=== PATIENT | male | born 1945 | race Caucasian/White ===

== ENCOUNTER → 2020-07-17 | Outpatient (CLI) | payer MEDICARE, OTHER | LOC: LABNPT 08:28 | PROVIDERS: ATTEND Internal Medicine Gastroenterology | DX: Z20.828 Contact with and (suspected) exposure to other viral communicable diseases (principal) | CPT/HCPCS: 87635 ==

== ENCOUNTER → 2020-10-17 | Outpatient (CLI) | payer MEDICARE, OTHER ==
[~2020-10-17] MED LIST: AMLO-250 PO; ASPI-1238 PO; CLOP75TA28 PO; PANT40TA52 PO; PRAS10TA10 PO
== END ==
LOC: GIR 20:34
PROVIDERS: ATTEND Internal Medicine
DX: Z20.828 Contact with and (suspected) exposure to other viral communicable diseases (principal)
CPT/HCPCS: 87635

== ENCOUNTER 2020-10-18 12:45 | Inpatient (IN) | payer MEDICARE, OTHER ==
[~2020-10-18] VITALS: Ht 182.8 cm; Wt 92.1 kg
[2020-10-18] MEDS ORDERED: NS IV 500 ML 500 ML IV SCH (18:45)
[2020-10-18 19:27] VITALS: BP 134/80
[2020-10-18] MEDS: PROPOFOL DRIP (ICU) 100 ML IV SCH ×2 (20:04→22:59)
[2020-10-18] MEDS ORDERED: NS IV 1000 ML 1,000 ML ONE (20:06)
[2020-10-18] MEDS: NS IV 1000 ML 1,000 ML IV SCH ×2 (20:09→20:30)
[2020-10-18] MEDS ORDERED: NOREPINEPHRINE 4 MG/250 ML 0 ML IV ONE (20:25)
[2020-10-18] MEDS ORDERED: NS IV 1000 ML 1,000 ML IV SCH (20:45)
[2020-10-18 20:56] LABS: BASOPHILS % (AUTO) 0 % (0-10); EOSINOPHILS # (AUTO) 0.4 10^3/uL (0.0-0.3); EOSINOPHILS % (AUTO) 3 % (0-10); HEMATOCRIT 21 % (40-54); LYMPHOCYTES # (AUTO) 0.7 10^3/uL (1.0-4.0); LYMPHOCYTES % (AUTO) 6 % (12-44); MEAN CORPUSCULAR HEMOGLOBIN 30 pg (25-34); MEAN CORPUSCULAR HGB CONC 32 g/dL (32-36); MEAN CORPUSCULAR VOLUME 93 fL (80-99); MEAN PLATELET VOLUME 9.7 fL (9.0-12.2); MONOCYTES # (AUTO) 0.6 10^3/uL (0.0-1.0); MONOCYTES % (AUTO) 5 % (0-12); NEUTROPHILS # (AUTO) 9.6 10^3/uL (1.8-7.8); NEUTROPHILS % (AUTO) 83 % (42-75); PLATELET COUNT 114 10^3/uL (130-400); WHITE BLOOD COUNT 11.6 10^3/uL (4.3-11.0)
--- NOTE | 2020-10-18 20:57 | Diagnostic Imaging Report ---
INDICATION: Dyspnea. COMPARISON: None. FINDINGS: Single frontal radiographic view of the chest was obtained and demonstrates indwelling endotracheal tube with tip just below the level of the clavicular heads. Gastric tube is also seen with tip and side-port likely within the lumen of the stomach. Cardiac silhouette and pulmonary vasculature are within normal limits. There is asymmetric prominence of the interstitium of the left lung. More confluent opacities are also present within the left lung base. There is also [id number] left basilar effusion. Right lung is relatively clear. There is no large effusion or pneumothorax on the right. Osseous structures show no acute abnormality. IMPRESSION: 1. Asymmetric interstitial prominence of the left lung. Findings could be on the basis of asymmetric interstitial edema or interstitial pneumonia. 2. Mild to moderate left basilar effusion with left basilar atelectasis and/or infiltrate. 3. Lines and tubes as above. Dictated by: Dictated on workstation # [id number]
[2020-10-18 21:02] LABS: HEMOGLOBIN 6.7 g/dL (13.3-17.7)
[2020-10-18 21:11] LABS: ABG BASE EXCESS -2.8 MMOL/L (-2.5-2.5); ABG OXYGEN SATURATION 97 % (94-100); ABG PCO2 41 MMHG (35-45); ABG PH 7.35 (7.37-7.43); ABG PO2 83 MMHG (79-93); ABG TCO2 23.4 MMOL/L (21.0-31.0)
[2020-10-18 21:11] LABS: ALBUMIN 2.2 GM/DL (3.2-4.5); CHLORIDE 117 MMOL/L (98-107); SODIUM 141 MMOL/L (135-145)
[2020-10-18 21:12] LABS: CALCIUM 6.3 MG/DL (8.5-10.1)
[2020-10-18 21:13] LABS: GLUCOSE 106 MG/DL (70-105); TOTAL PROTEIN 3.5 GM/DL (6.4-8.2)
[2020-10-18 21:13] LABS: ALLENS TEST ARTLINE; INSPIRED O2 40
[2020-10-18 21:14] LABS: PATIENT TEMP 36.4; VENTILATOR NO
[2020-10-18 21:14] LABS: CARBON DIOXIDE 18 MMOL/L (21-32)
[2020-10-18 21:15] LABS: BILIRUBIN,TOTAL 0.6 MG/DL (0.1-1.0)
[2020-10-18 21:17] LABS: ALKALINE PHOSPHATASE 28 U/L (40-136); CREATININE SERUM 0.79 MG/DL (0.60-1.30); GFR ESTIMATED > 60
[2020-10-18 21:18] LABS: BUN/CREATININE RATIO 24
[2020-10-18 21:20] LABS: ALANINE AMINOTRANSFERASE 8 U/L (0-55)
[2020-10-18 21:21] VITALS: BP 155/95
[2020-10-18] MEDS ORDERED: HEParin (CENTRAL IV FLUSH) 500 UNIT/5 ML SYR ONE (21:44)
[2020-10-18 21:51] LABS: ANISOCYTOSIS SLIGHT; BAND NEUTROPHILS 6 %; BASOPHILS % (MANUAL) 1 %; EOSINOPHILS % (MANUAL) 7 %; LYMPHOCYTES % (MANUAL) 7 %; MONOCYTES % (MANUAL) 1 %; NEUTROPHILS % (MANUAL) 78 %; POIKILOCYTOSIS SLIGHT; POLYCHROMASIA SLIGHT
[2020-10-18] MEDS ORDERED: WATER (STERILE) FOR INJECTION 20 ML ONE (21:51)
[2020-10-18 21:52] LABS: ELLIPT/OVALOCYTES SLIGHT; TOXIC GRANULATION/VACUOLAZATIO 1+
[2020-10-18 22:14] VITALS: BP 137/83
[2020-10-18 22:17] LABS: BILIRUBIN,URINE NEGATIVE (NEGATIVE); CLARITY,URINE CLEAR; COLOR,URINE YELLOW; GLUCOSE, URINE (UA) NEGATIVE (NEGATIVE); KETONES,URINE TRACE (NEGATIVE); LEUKOCYTE ESTERASE ,URINE TRACE (NEGATIVE); NITRITE,URINE NEGATIVE (NEGATIVE); PH,URINE 5.5 (5-9); PROTEIN,URINE NEGATIVE (NEGATIVE)
[2020-10-18 22:25] LABS: BACTERIA,URINE TRACE /HPF; RBC,URINE RARE /HPF; WBC,URINE 0-2 /HPF
[2020-10-18 22:26] LABS: HYALINE CASTS, URINE RARE /LPF
[2020-10-18 22:29] VITALS: BP 137/87
[2020-10-18] MEDS: NOREPINEPHRINE 4 MG/250 ML 250 ML IV SCH (22:59)
[2020-10-19] VITALS (9 sets, daily range): BP systolic 115–148; BP diastolic 47–83
[2020-10-19] MEDS ORDERED: NS (IVPB) 250 ML ONE (00:07)
[2020-10-19] MEDS ORDERED: VANCOMYCIN 1000 MG/VIAL ONE (00:07)
[2020-10-19] MEDS: MEROPENEM 1,000 MG in WATER (STERILE) FOR INJECTION 20 ML IV SCH ×5 (00:20→22:21)
[2020-10-19] MEDS: VANCOMYCIN INJECTION 1,000 MG in NS (IVPB) 250 ML IV SCH ×3 (00:20→23:37)
[2020-10-19] MEDS: PANTOPRAZOLE 40 MG (PROTONIX) VIAL IV SCH ×3 (00:21→20:20)
[2020-10-19] MEDS: NS IV 1000 ML 1,000 ML IV SCH ×3 (00:30→08:55)
[2020-10-19] MEDS: PROPOFOL DRIP (ICU) 100 ML IV SCH ×3 (01:15→10:40)
[2020-10-19 05:27] LABS: BASOPHILS # (AUTO) 0.1 10^3/uL (0.0-0.1); BASOPHILS % (AUTO) 0 % (0-10); EOSINOPHILS # (AUTO) 0.8 10^3/uL (0.0-0.3); EOSINOPHILS % (AUTO) 5 % (0-10); HEMATOCRIT 29 % (40-54); LYMPHOCYTES # (AUTO) 1.1 10^3/uL (1.0-4.0); LYMPHOCYTES % (AUTO) 8 % (12-44); MEAN CORPUSCULAR HEMOGLOBIN 30 pg (25-34); MEAN CORPUSCULAR HGB CONC 33 g/dL (32-36); MEAN CORPUSCULAR VOLUME 92 fL (80-99); MEAN PLATELET VOLUME 9.8 fL (9.0-12.2); MONOCYTES # (AUTO) 0.7 10^3/uL (0.0-1.0); MONOCYTES % (AUTO) 5 % (0-12); NEUTROPHILS # (AUTO) 11.7 10^3/uL (1.8-7.8); NEUTROPHILS % (AUTO) 81 % (42-75); PLATELET COUNT 121 10^3/uL (130-400); WHITE BLOOD COUNT 14.4 10^3/uL (4.3-11.0)
[2020-10-19 05:37] LABS: CHLORIDE 115 MMOL/L (98-107); POTASSIUM 3.5 MMOL/L (3.6-5.0); SODIUM 141 MMOL/L (135-145)
[2020-10-19 05:38] LABS: CALCIUM 6.8 MG/DL (8.5-10.1)
[2020-10-19 05:39] LABS: GLUCOSE 104 MG/DL (70-105); TRIGLYCERIDES 91 MG/DL (<150)
[2020-10-19 05:41] LABS: CARBON DIOXIDE 18 MMOL/L (21-32)
[2020-10-19] MEDS ORDERED: WATER (STERILE) FOR INJECTION 20 ML ONE ×2 (05:42→20:16)
[2020-10-19] MEDS ORDERED: MEROPENEM 500 MG VIAL (MERREM) IV ONE ×2 (05:42→20:16)
[2020-10-19 05:43] LABS: CREATININE SERUM 0.82 MG/DL (0.60-1.30); GFR ESTIMATED > 60; HEMOGLOBIN 9.5 g/dL (13.3-17.7)
[2020-10-19 05:44] LABS: BUN/CREATININE RATIO 22
[2020-10-19 05:45] LABS: MAGNESIUM 1.9 MG/DL (1.6-2.4)
[2020-10-19] MEDS: NOREPINEPHRINE 4 MG/250 ML 250 ML IV SCH ×3 (05:46→16:29)
[2020-10-19] MEDS: KCL 20 MEQ TAB (K-DUR) PO SCH (05:51)
[2020-10-19] MEDS: MAGNESIUM 1 GM/100 ML IVPB 100 ML IV SCH (05:51)
[2020-10-19] MEDS: POTASSIUM CL 10MEQ/50ML IVPB 50 ML IV SCH ×3 (05:51→06:58)
--- NOTE | 2020-10-19 06:00 | History & Physical-Hospitalist ---
History of Present Illness HPI/Chief Complaint CC: VDRF from left sided PNA s/p severe sepsis and massive GI bleed with no source found on EGD x 2 and Colonoscopy HPI: This is a 74yoWM patient of Dr Servin and Dr Kong who presented to the [facility] ER with melena and hematochezia with no abdominal pain. Patient was found to be hypotensive and tachycardic and very pale even though hgb was 9.9 so patient was give 2 units of blood and Dr Alicia was consulted. Upon further evaluation he was found to have had 2 stents placed [address] Kong and was on Effient and ASA since that time of which he stopped taking 10/12/20 was his last dose due to bleeding per rectum ( I spoke to Dr Kong in-depth on 10/16 and he was very concerned about his new stents and highly recommended Plavix to be restarted but he was bleeding so profoundly the executive decision was made to not start that med due to risks for bleeding outweighed benefits). EGD was performed and pyloric stenosis dx but no source of bleeding. Dr Dugan was then consulted since Dr Alicia was OOT and he performed Colonoscopy revealing extensive clots and blood in colon without exact source identified and he repeated the EGD also and no source identified. Patient continued to have more and more melena and hematochezia and ultimately was transfused for total of 6 units prior to colonoscopy but on Tuesday evening at 1900 he decompensated with hypotension and hypoxia with left sided chest pain so he was moved to ICU and family called and central line was placed and intubated by nurse research electrician in a controlled manner. Patient continued to bleed requiring 7th unit of blood and ICU room was secured at [facility] in the midst of hospital diversion for all hospitals in [facility] radius due to VDRF and continued bleeding and the need for RBC tagged bleeding scan to identify bleeding source which is likely small bowel. PNA was treated with addition of Corey and Vanc empirically after BCx obtained during rapid response status and confirmed severe sepsis with elevated lactic acid s/p 30cc/hr NS IVF per severe sepsis protocol and did not require pressor therapy. Updated daughter. After rounding patient was successfully extubated and able to communicate. Lasix 20mg IV given due to aggressive IVF and total 9 units of blood the past 5 days. Source: RN/, old records Exam Limitations: clinical condition Date Seen 10/19/20 Time Seen by a Provider: 11:00 Attending Physician Brook Knox DO PCP No,Local Physician Referring Physician Date of Admission Oct 18, 2020 at 19:21 Home Medications & Allergies Home Medications Reviewed patient Home Medication Reconciliation performed by pharmacy medication reconciliations patient care technician and/or nursing. Patients Allergies have been reviewed. Allergies Allergies Coded Allergies atorvastatin (Verified Allergy, Unknown, 10/18/20) Past Ldfbsak-Ohpbql-Nocpat Hx Past Med/Social Hx: Reviewed Nursing Past Med/Soc Hx, Reviewed and Corrections made Patient Social History Marrital Status: Employed/Student: retired Alcohol Use: Denies Use Recreational Drug Use: No Smoking Status: Never a Smoker Physical Abuse Screen: No Sexual Abuse: No Recent Foreign Travel: No Recent Hopitalizations: Yes Seasonal Allergies Seasonal Allergies: No Past Medical History Surgeries: Coronary Stent Cardiac: Coronary Artery Disease, High Cholesterol, Hypertension History of Blood Disorders: No Review of Systems Constitutional: see HPI Physical Exam Physical Exam Vital Signs Vital Signs - First Documented 10/18/20 10/18/20 19:27 20:04 Temp 36.3 Pulse 88 Resp 18 B/P (MAP) 119/56 Pulse Ox 98 O2 Flow Rate 40.00 FiO2 40 Capillary Refill : Height, Weight, BMI Height: '" Weight: lbs. oz. kg; 26.93 BMI Method: General Appearance: No Apparent Distress, Chronically ill, Thin Respiratory: Lungs Clear, No Accessory Muscle Use, No Respiratory Distress, Other (on vent) Cardiovascular: Regular Rate, Rhythm Neurologic/Psychiatric: Other (sedated) Results Results/Procedures Labs Laboratory Tests 10/18/20 20:38 10/19/20 05:16 Patient resulted labs reviewed. Assessment/Plan Admission Diagnosis Assessment: VDRF vent day # 3 intubated at [facility] during rapid response episode now extubated 10/19/20 at 1145am Left sided PNA s/p severe sepsis received 30cc/kg IVF without use of pressor therapy Massive GIB with no source of active bleeding on EGD x 2 and Colonoscopy suspect small bowel source rbc bleeding scan completed results pending CAD 2 stents placed 6 weeks ago previously on Effient and ASA last dose 10/12/20 life threatening bleed requires holding anti-platelet therapy Elevated troponin Plan: Vent- now extubated ICU care Transfuse RBC tagged nuclear scan results pending- results in revealed no active GIB PNA IVF Platelets infusion Admission Status: Inpatient Order (span 2 midnights) Reason for Inpatient Admission: vdrf Diagnosis/Problems Diagnosis/Problems (1) Ventilator dependence (2) GI bleed (3) Anemia (4) Transfusion of platelets during current hospitalization (5) CAD (coronary artery disease) (6) Presence of stent in coronary artery (7) Pneumonia involving left lung (8) Severe sepsis (9) Lab test negative for COVID-19 virus Clinical Quality Measures DVT/VTE Risk/Contraindication: Risk Factor Score Per Nursin RFS Level Per Nursing on Admit: 4+=Very High Contraindications-Pharm: Other *list below* Other: BROOK VALDEZ DO Oct 19, 2020 06:00
[2020-10-19 06:08] LABS: ABG BASE EXCESS -3.2 MMOL/L (-2.5-2.5); ABG OXYGEN SATURATION 96 % (94-100); ABG PCO2 36 MMHG (35-45); ABG PH 7.38 (7.37-7.43); ABG PO2 68 MMHG (79-93); ABG TCO2 22.5 MMOL/L (21.0-31.0); ALLENS TEST ARTLINE; INSPIRED O2 30; PATIENT TEMP 35.8; VENTILATOR YES
--- NOTE | 2020-10-19 08:07 | Diagnostic Imaging Report ---
INDICATION: Gastrointestinal bleed COMPARISON: None available. TECHNIQUE: Anterior scintigraphic imaging of the abdomen and pelvis was performed after the intravenous administration of 20.1 mCi mCi Tc-99m Tagged RBC. FINDINGS: No tubular radiopharmaceutical activity to indicate active gastrointestinal bleed. Physiologic activity in the vasculature and urinary systems is noted. IMPRESSION: No evidence of active GI bleed. Dictated by: Dictated on workstation # [id number]
--- NOTE | 2020-10-19 08:40 | NUR ---
spoke with pt's daughter about pt's progress and plans for today as well as what test results from scans. Pt's daughter will call back around 6:30 this evening for an update.
--- NOTE | 2020-10-19 10:14 | Progress Note ---
Subjective Date Seen by a Provider: Oct 19, 2020 Time Seen by a Provider: 09:30 Subjective/Events-last exam on vent/sedated. FiO2 25% with adequate abg. hb stable at 9.5 after 2 units PRBC. no signs clinical bleed. nuclear bleeding scan negative for active bleed. Focused Exam Lactate Level 10/18/20 20:38: Lactic Acid Level 0.71 Objective Exam Vital Signs Date Time Temp Pulse Resp B/P (MAP) Pulse Ox O2 Delivery O2 Flow Rate FiO2 10/19/20 10:00 70 20 96 Mechanical Ventilator 25.00 10/19/20 09:00 97 Mechanical Ventilator 25 10/19/20 08:58 67 20 98 Mechanical Ventilator 25.00 10/19/20 08:00 67 18 97 Mechanical Ventilator 30.00 10/19/20 07:45 73 18 97 10/19/20 07:30 70 21 97 10/19/20 07:25 36.2 10/19/20 07:10 69 19 99 25 10/19/20 07:00 67 10/19/20 07:00 71 19 98 Mechanical Ventilator 30.00 10/19/20 06:45 71 16 99 10/19/20 06:30 71 18 99 10/19/20 06:15 71 17 99 10/19/20 06:00 71 18 99 Mechanical Ventilator 30.00 10/19/20 05:46 71 140/59 10/19/20 05:45 35.8 75 19 115/75 99 Mechanical Ventilator 30 10/19/20 05:30 36.0 71 20 140/59 97 Mechanical Ventilator 30 10/19/20 05:00 74 21 97 Mechanical Ventilator 30.00 10/19/20 04:58 35.8 97 Mechanical Ventilator 30.00 10/19/20 04:00 78 22 95 Mechanical Ventilator 30.00 10/19/20 03:55 36.2 78 18 144/76 95 Mechanical Ventilator 30 10/19/20 03:23 77 18 97 30 10/19/20 03:00 77 23 95 Mechanical Ventilator 30.00 10/19/20 02:00 97 Mechanical Ventilator 30.00 10/19/20 02:00 69 19 99 Mechanical Ventilator 30.00 10/19/20 01:30 36.1 80 20 137/76 99 Mechanical Ventilator 40 10/19/20 01:15 80 137/76 10/19/20 01:15 35.9 80 21 148/57 100 Mechanical Ventilator 40 10/19/20 01:00 87 10/19/20 01:00 85 24 98 Mechanical Ventilator 40.00 10/19/20 00:58 36.4 82 25 139/58 99 Mechanical Ventilator 50 10/19/20 00:00 76 20 100 Mechanical Ventilator 40.00 10/19/20 00:00 36.4 10/18/20 22:29 36.0 81 18 137/87 98 Mechanical Ventilator 40 10/18/20 22:14 36.4 87 23 137/83 98 Mechanical Ventilator 40 10/18/20 22:00 92 20 98 Mechanical Ventilator 40.00 10/18/20 21:30 99 25 98 Mechanical Ventilator 40.00 10/18/20 21:21 109 18 98 40 10/18/20 21:00 94 23 96 Mechanical Ventilator 40.00 10/18/20 20:45 82 23 100 Mechanical Ventilator 40.00 10/18/20 20:30 96 19 95 Mechanical Ventilator 40.00 10/18/20 20:15 99 23 98 Mechanical Ventilator 40.00 10/18/20 20:04 119/56 10/18/20 20:04 36.3 92 23 99 Mechanical Ventilator 40.00 10/18/20 20:00 100 Mechanical Ventilator 40 10/18/20 20:00 Mechanical Ventilator 40 10/18/20 19:38 94 10/18/20 19:27 88 18 98 40 I & O 10/19/20 07:00 Intake Total 2160 ml Output Total 1750 ml Balance 410 ml Capillary Refill : Less Than 3 Seconds General Appearance: No Apparent Distress HEENT: Normal ENT Inspection Neck: Full Range of Motion Respiratory: Decreased Breath Sounds, Rhonci Cardiovascular: Regular Rate, Rhythm Gastrointestinal: normal bowel sounds, non tender, soft Extremity: Normal Capillary Refill Skin: Normal Color Lymphatic: No Adenopathy Results Lab Laboratory Tests 10/18/20 20:38: White Blood Count 11.6H, Red Blood Count 2.24L, Hemoglobin 6.7*L, Hematocrit 21L , Mean Corpuscular Volume 93, Mean Corpuscular Hemoglobin 30, Mean Corpuscular Hemoglobin Concent 32, Red Cell Distribution Width 16.7H, Platelet Count 114L, Mean Platelet Volume 9.7, Immature Granulocyte % (Auto) 3, Neutrophils (%) (Auto) 83H, Lymphocytes (%) (Auto) 6L, Monocytes (%) (Auto) 5, Eosinophils (%) (Auto) 3, Basophils (%) (Auto) 0, Neutrophils # (Auto) 9.6H, Lymphocytes # (Auto) 0.7L, Monocytes # (Auto) 0.6, Eosinophils # (Auto) 0.4H, Basophils # (Auto) 0.0, Immature Granulocyte # (Auto) 0.3H, Neutrophils % (Manual) 78, Lymphocytes % (Manual) 7, Monocytes % (Manual) 1, Eosinophils % (Manual) 7, Basophils % (Manual) 1, Band Neutrophils 6, Toxic Granulation 1+, Polychromasia SLIGHT, Poikilocytosis SLIGHT, Anisocytosis SLIGHT, Macrocytosis SLIGHT, Elliptocytes SLIGHT, Sodium Level 141, Potassium Level 3.0L, Chloride Level 117H , Carbon Dioxide Level 18L, Anion Gap 6, Blood Urea Nitrogen 19H, Creatinine 0.79, Estimat Glomerular Filtration Rate > 60, BUN/Creatinine Ratio 24, Glucose Level 106H, Lactic Acid Level 0.71, Calcium Level 6.3L, Corrected Calcium 7.7L, Total Bilirubin 0.6, Aspartate Amino Transf (AST/SGOT) 13, Alanine Aminotransferase (ALT/SGPT) 8, Alkaline Phosphatase 28L, Troponin I 0.392*H, Total Protein 3.5L, Albumin 2.2L 10/18/20 21:03: [facility], [facility] Patient Temperature 36.4, Arterial Blood pH 7.35L, Arterial Blood Partial Pressure CO2 41, Arterial Blood Partial Pressure O2 83, Arterial Blood HCO3 22L, Arterial Blood Total CO2 23.4, Arterial Blood Oxygen Saturation 97, Arterial Blood Base Excess -2.8L, Andrey Test ARTLINE, Blood Gas Ventilator Setting NO, Blood Gas Inspired Oxygen 40 10/18/20 21:50: Urine Color YELLOW, Urine Clarity CLEAR, Urine pH 5.5, Urine Specific [place] 1.025H, Urine Protein NEGATIVE, Urine Glucose (UA) NEGATIVE, Urine Ketones TRACEH, Urine Nitrite NEGATIVE, Urine Bilirubin NEGATIVE, Urine Urobilinogen 0.2, Urine Leukocyte Esterase TRACEH, Urine RBC (Auto) TRACE-I, Urine RBC RARE, Urine WBC 0-2, Urine Squamous Epithelial Cells NONE, Urine Crystals NONE, Urine Bacteria TRACE, Urine Casts PRESENT, Urine Hyaline Casts RARE, Urine Mucus SMALLH, Urine Culture Indicated NO 10/19/20 00:32: Glucometer 111H 10/19/20 05:16: White Blood Count 14.4H, Red Blood Count 3.13L, Hemoglobin 9.5#L, Hematocrit 29L , Mean Corpuscular Volume 92, Mean Corpuscular Hemoglobin 30, Mean Corpuscular Hemoglobin Concent 33, Red Cell Distribution Width 16.0H, Platelet Count 121L, Mean Platelet Volume 9.8, Immature Granulocyte % (Auto) 0, Neutrophils (%) (Auto) 81H, Lymphocytes (%) (Auto) 8L, Monocytes (%) (Auto) 5, Eosinophils (%) (Auto) 5, Basophils (%) (Auto) 0, Neutrophils # (Auto) 11.7H, Lymphocytes # (Aut o) 1.1, Monocytes # (Auto) 0.7, Eosinophils # (Auto) 0.8H, Basophils # (Auto) 0.1, Immature Granulocyte # (Auto) 0.1, Sodium Level 141, Potassium Level 3.5L, Chloride Level 115H, Carbon Dioxide Level 18L, Anion Gap 8, Blood Urea Nitrogen 18, Creatinine 0.82, Estimat Glomerular Filtration Rate > 60, BUN/Creatinine Ratio 22, Glucose Level 104, Calcium Level 6.8L, Phosphorus Level 2.0L, Magnesium Level 1.9, Triglycerides Level 91 10/19/20 05:55: Blood Gas Puncture Site LEFT ARTLINE, Blood Gas Patient Temperature 35.8, Arterial Blood pH 7.38, Arterial Blood Partial Pressure CO2 36, Arterial Blood Partial Pressure O2 68L, Arterial Blood HCO3 21L, Arterial Blood Total CO2 22.5, Arterial Blood Oxygen Saturation 96, Arterial Blood Base Excess -3.2L, Andrey Test ARTLINE, Blood Gas Ventilator Setting YES, Blood Gas Inspired Oxygen 30 Assessment/Plan Assessment/Plan Assess & Plan/Chief Complaint CAD with recent cath and stent and on anticoagulation with anemia. EGD and colonoscopy on 10/17 no signs active bleed. nuclear bleeding scan negative. hb elevated appropriately and stable after 2u PRBC. continue to hold anticoag for another 24hrs and if hb stable and no clinical bleed. may resume anticoagulation. cont PPI. Clinical Quality Measures DVT/VTE Risk/Contraindication: Risk Factor Score Per Nursin RFS Level Per Nursing on Admit: 4+=Very High Contraindications-Pharm: Other *list below* Other: KISHA MAY MD Oct 19, 2020 10:14
--- NOTE | 2020-10-19 11:35 | NUR ---
pt extubated to 4 lpm nasal canula. spo2 98% , hr72, bp-137/63 rr-18. resting with eyes closed does follow commands at this time.
[2020-10-19] MEDS ORDERED: FUROSEMIDE 40 MG/4 ML INJ (LASIX) IVP ONE (12:00)
--- NOTE | 2020-10-19 14:06 | Consultation-Cardiology ---
HPI-Cardiology Cardiology Consultation: Date of Consultation 10/19/20 Date of Admission Attending Physician Brook Marte DO Admitting Physician Una,Local Physician Consulting Physician Ronan ODEN MD HPI: Time Seen by a Provider: 12:00 Chief Complaint: CAD This is a 74-year-old gentleman who is a patient of Dr. marte. Patient has history of recent PCI with [address] Kong at [facility]. The patient was on Effient and aspirin. He presented to [facility] ER with severe GI bleeding. Patient was hypotensive and tachycardic. Due to concern of significant GI bleeding, dual antiplatelet was discontinued. EGD was done which showed pyloric stenosis but no source of bleeding. Colonoscopy showed extensive clots and blood in the colon again without active source of bleeding. Repeat EGD was also nonconclusive. Patient continued to have GI bleeding and received numerous units of packed RBCs. Patient's clinical condition worsened on 10/17/2020 with hypotension and hypoxia with left-sided chest pain. He was moved to the ICU. He required further blood transfusion. He was transferred to [facility] for severe sepsis, right sided pneumonia and started on broad-spectrum IV antibiotics. He was also intubated. The patient was extubated today. He denied having any chest pain. He denies ac tive smoking. Review of Systems-Cardiology Review of Systems Constitutional: As described under HPI; No As described under HPI, No no symptoms reported, No chills, No fever, No lightheadedness Eyes: No As described under HPI, No no symptoms reported, No blindness, No blurred vision, No contact lenses, No drainage, No decreased acuity, No foreign body sensation, No pain, No vision change Ears/Nose/Throat: No As described under HPI, No no symptoms reported, No chronic hearing loss, No ear discharge, No ear pain, No nasal drainage, No ulcerations Respiratory: No no symptoms reported; As described under HPI; No As described under HPI, No cough, No orthopnea, No shortness of breath, No SOB with excertion Cardiovascular: No no symptoms reported; As described under HPI; No As described under HPI, No chest pain, No edema, No irregular heart rate, No lightheadedness, No palpitations Gastrointestinal: No no symptoms reported, No As described under HPI, No abdomen distended, No abdominal pain, No blood streaked bowels, No constipation, No diarrhea, No nausea; rectal bleeding; No vomiting, No stool coloration changes Genitourinary: No As described under HPI, No burning, No dysuria, No discharge, No frequency, No flank pain, No hematuria, No urgency Skin: No rash, No skin related problems, No ulcerations Psychiatric/Neurological: No anxiety, No depression, No seizure, No focal weakness, No syncope Hematologic: No bleeding abnormalities [id number] Hx Patient Social History Marrital Status: Employed/Student: retired Alcohol Use: Denies Use Recreational Drug Use: No Smoking Status: Never a Smoker Recent Foreign Travel: No Hospitalization with Isolation: Denies Physical Abuse Screen: No Sexual Abuse: No Past Medical History PMH As described under Assessment. Allergies and Home Medications Allergies Coded Allergies: atorvastatin (Verified Allergy, Unknown, 10/18/20) Patient Home Medication List Home Medication List Reviewed: Yes Physical Exam-Cardiology Physical Exam Vital Signs/I&O 10/19/20 10/19/20 10/19/20 10/19/20 03:00 03:23 03:55 04:00 Temp 36.2 Pulse 77 77 78 78 Resp 23 18 18 22 B/P (MAP) 144/76 Pulse Ox 95 97 95 95 O2 Delivery Mechanical Ventilator Mechanical Ventilator Mechanical Ventilator O2 Flow Rate 30.00 30.00 FiO2 30 30 10/19/20 10/19/20 10/19/20 10/19/20 04:58 05:00 05:30 05:45 Temp 35.8 36.0 35.8 Pulse 74 71 75 Resp 21 20 19 B/P (MAP) 140/59 115/75 Pulse Ox 97 97 97 99 O2 Delivery Mechanical Ventilator Mechanical Ventilator Mechanical Ventilator Mechanical Ventilator O2 Flow Rate 30.00 30.00 FiO2 30 30 10/19/20 10/19/20 10/19/20 10/19/20 05:46 06:00 06:15 06:30 Pulse 71 71 71 71 Resp 18 17 18 B/P (MAP) 140/59 Pulse Ox 99 99 99 O2 Delivery Mechanical Ventilator O2 Flow Rate 30.00 10/19/20 10/19/20 10/19/20 10/19/20 06:45 07:00 07:00 07:10 Pulse 71 71 67 69 Resp 16 19 19 B/P (MAP) Pulse Ox 99 98 99 O2 Delivery Mechanical Ventilator O2 Flow Rate 30.00 FiO2 25 10/19/20 10/19/20 10/19/20 10/19/20 07:25 07:30 07:45 08:00 Temp 36.2 Pulse 70 73 67 Resp 21 18 18 B/P (MAP) Pulse Ox 97 97 97 O2 Delivery Mechanical Ventilator O2 Flow Rate 30.00 10/19/20 10/19/20 10/19/20 10/19/20 08:15 08:30 08:45 08:58 Pulse 67 68 64 67 Resp 18 17 16 20 B/P (MAP) Pulse Ox 97 98 98 98 O2 Delivery Mechanical Ventilator Mechanical Ventilator O2 Flow Rate 30.00 25.00 10/19/20 10/19/20 10/19/20 10/19/20 09:00 09:15 09:30 09:45 Pulse 64 70 66 Resp 18 19 19 B/P (MAP) Pulse Ox 97 97 96 96 O2 Delivery Mechanical Ventilator FiO2 25 10/19/20 10/19/20 10/19/20 10/19/20 10:00 10:15 10:30 10:40 Pulse 70 71 64 63 Resp 20 20 16 B/P (MAP) 121/68 Pulse Ox 96 95 94 O2 Delivery Mechanical Ventilator O2 Flow Rate 25.00 10/19/20 10/19/20 10/19/20 10/19/20 10:45 11:00 11:15 11:30 Pulse 68 75 80 84 Resp 22 23 24 25 B/P (MAP) Pulse Ox 95 92 92 93 O2 Delivery Mechanical Ventilator O2 Flow Rate 25.00 10/19/20 10/19/20 10/19/20 10/19/20 11:45 11:47 11:57 12:00 Temp 36.3 Pulse 87 82 Resp 25 19 26 B/P (MAP) Pulse Ox 97 98 97 O2 Delivery Nasal Cannula Nasal Cannula O2 Flow Rate 4.00 4.00 10/19/20 10/19/20 10/19/20 10/19/20 12:15 12:30 12:35 12:45 Pulse 80 78 89 74 Resp 24 24 24 B/P (MAP) Pulse Ox 98 98 99 10/19/20 13:00 Pulse 84 Resp 24 B/P (MAP) Pulse Ox 99 O2 Delivery Nasal Cannula O2 Flow Rate 4.00 10/19/20 00:00 Intake Total 2000 ml Output Total 1200 ml Balance 800 ml Capillary Refill : Less Than 3 Seconds Constitutional: AAO x 3 HEENT: PERRL; No discharge; hearing is well preserved, oral hygience is good; No ulceration, No xanthelasmas are seen Neck: No carotid bruit; carotid pulses are 2 + bilaterally Respiratory: chest is bilaterally symmetric, lungs clear to auscultation Cardiovascular: regular rate-rhythm, S1 and S2 Gastrointestinal: soft, audible bowel sounds; No spleenomegaly Rectal: deferred Extremities: normal range of motion, non-tender, normal inspection; No clubbing, No cyanosis; no lower extremity edema bilateral; No significant edema Neurologic/Psychiatric: no motor/sensory deficits, alert, normal mood/affect, oriented x 3, power is 5/5 both on sides Skin: No rash, No ulcerations Data Review Labs Laboratory Tests 10/18/20 20:38: White Blood Count 11.6H, Red Blood Count 2.24L, Hemoglobin 6.7*L, Hematocrit 21L , Mean Corpuscular Volume 93, Mean Corpuscular Hemoglobin 30, Mean Corpuscular Hemoglobin Concent 32, Red Cell Distribution Width 16.7H, Platelet Count 114L, Mean Platelet Volume 9.7, Immature Granulocyte % (Auto) 3, Neutrophils (%) (Auto) 83H, Lymphocytes (%) (Auto) 6L, Monocytes (%) (Auto) 5, Eosinophils (%) (Auto) 3, Basophils (%) (Auto) 0, Neutrophils # (Auto) 9.6H, Lymphocytes # (Auto) 0.7L, Monocytes # (Auto) 0.6, Eosinophils # (Auto) 0.4H, Basophils # (Auto) 0.0, Immature Granulocyte # (Auto) 0.3H, Neutrophils % (Manual) 78, Lymphocytes % (Manual) 7, Monocytes % (Manual) 1, Eosinophils % (Manual) 7, Basophils % (Manual) 1, Band Neutrophils 6, Toxic Granulation 1+, Polychromasia SLIGHT, Poikilocytosis SLIGHT, Anisocytosis SLIGHT, Macrocytosis SLIGHT, Elliptocytes SLIGHT, Sodium Level 141, Potassium Level 3.0L, Chloride Level 117H , Carbon Dioxide Level 18L, Anion Gap 6, Blood Urea Nitrogen 19H, Creatinine 0.79, Estimat Glomerular Filtration Rate > 60, BUN/Creatinine Ratio 24, Glucose Level 106H, Lactic Acid Level 0.71, Calcium Level 6.3L, Corrected Calcium 7.7L, Total Bilirubin 0.6, Aspartate Amino Transf (AST/SGOT) 13, Alanine Aminotransferase (ALT/SGPT) 8, Alkaline Phosphatase 28L, Troponin I 0.392*H, Total Protein 3.5L, Albumin 2.2L 10/18/20 21:03: Blood Gas Puncture Site LEFT ARTLINE, Blood Gas Patient Temperature 36.4, Arterial Blood pH 7.35L, Arterial Blood Partial Pressure CO2 41, Arterial Blood Partial Pressure O2 83, Arterial Blood HCO3 22L, Arterial Blood Total CO2 23.4, Arterial Blood Oxygen Saturation 97, Arterial Blood Base Excess -2.8L, Andrey Test ARTLINE, Blood Gas Ventilator Setting NO, Blood Gas Inspired Oxygen 40 10/18/20 21:50: Urine Color YELLOW, Urine Clarity CLEAR, Urine pH 5.5, Urine Specific [place] 1.025H, Urine Protein NEGATIVE, Urine Glucose (UA) NEGATIVE, Urine Ketones TRACEH, Urine Nitrite NEGATIVE, Urine Bilirubin NEGATIVE, Urine Urobilinogen 0.2, Urine Leukocyte Esterase TRACEH, Urine RBC (Auto) TRACE-I, Urine RBC RARE, Urine WBC 0-2, Urine Squamous Epithelial Cells NONE, Urine Crystals NONE, Urine Bacteria TRACE, Urine Casts PRESENT, Urine Hyaline Casts RARE, Urine Mucus SMALLH, Urine Culture Indicated NO 10/19/20 00:32: Glucometer 111H 10/19/20 05:16: White Blood Count 14.4H, Red Blood Count 3.13L, Hemoglobin 9.5#L, Hematocrit 29L , Mean Corpuscular Volume 92, Mean Corpuscular Hemoglobin 30, Mean Corpuscular Hemoglobin Concent 33, Red Cell Distribution Width 16.0H, Platelet Count 121L, Mean Platelet Volume 9.8, Immature Granulocyte % (Auto) 0, Neutrophils (%) (Auto) 81H, Lymphocytes (%) (Auto) 8L, Monocytes (%) (Auto) 5, Eosinophils (%) (Auto) 5, Basophils (%) (Auto) 0, Neutrophils # (Auto) 11.7H, Lymphocytes # (Auto) 1.1, Monocytes # (Auto) 0.7, Eosinophils # (Auto) 0.8H, Basophils # (Auto) 0.1, Immature Granulocyte # (Auto) 0.1, Sodium Level 141, Potassium Level 3.5L, Chloride Level 115H, Carbon Dioxide Level 18L, Anion Gap 8, Blood Urea Nitrogen 18, Creatinine 0.82, Estimat Glomerular Filtration Rate > 60, BUN/Creatinine Ratio 22, Glucose Level 104, Calcium Level 6.8L, Phosphorus Level 2.0L, Magnesium Level 1.9, Triglycerides Level 91 10/19/20 05:55: Blood Gas Puncture Site LEFT ARTLINE, Blood Gas Patient Temperature 35.8, Arterial Blood pH 7.38, Arterial Blood Partial Pressure CO2 36, Arterial Blood Partial Pressure O2 68L, Arterial Blood HCO3 21L, Arterial Blood Total CO2 22.5, Arterial Blood Oxygen Saturation 96, Arterial Blood Base Excess -3.2L, Andrey Test ARTLINE, Blood Gas Ventilator Setting YES, Blood Gas Inspired Oxygen 30 10/19/20 11:06: Glucometer 81 ECG Impression ECG Initial ECG Rhythm: Normal Sinus, PVC A/P-Cardiology Assessment/Admission Diagnosis Severe respiratory failure, Hospital acquired pneumonia, Active GI bleeding, anemia, Numerous transfusions given, Recent PCI with 2 stents, Positive troponin Plan Severe respiratory failure, Hospital acquired pneumonia, on broad spectrum antibiotics. Severe sepsis requiring IV fluids. Active GI bleeding, anemia, inconclusive EGD/colonoscopy. Keep hemoglobin over 10.0. Deferred to general surgery and Dr. Marte. Numerous transfusions given, Recent PCI with 2 stents, Positive troponin. Patient denies any chest pain. EKG does not show any acute ST-T wave abnormalities. This is a very difficult situation. Even though the patient has had 2 stents 6 weeks ago and does require dual antiplatelet therapy, however due to severe GI bleeding and requiring multiple transfusions, dual antiplatelet therapy or Antithrombin therapy could result in further massive bleeding which could result in that for the patient. Therefore I have agreed with Dr. marte. We will con tinue to hold dual antiplatelet therapy as well as Antithrombin therapy till we have given the okay by the primary team and general surgery. I discussed with the patient as well and also informed him of the possibility of stent thrombosis and severe cardiac adverse events. Echocardiogram tomorrow. Thank you for your consultation. Please call me if you have any questions. Chase Oden MD, FACP, FACC, FSCAI, FHRS, CCDS Interventional Cardiology Cardiac Electrophysiology Vascular Medicine and Endovascular Interventions Clinical Quality Measures DVT/VTE Risk/Contraindication: Risk Factor Score Per Nursin RFS Level Per Nursing on Admit: 4+=Very High Contraindications-Pharm: Other *list below* Other: Ronan ROTH MD Oct 19, 2020 14:06
[2020-10-19] MEDS ORDERED: ACETAMINOPHEN 500 MG TAB (TYLENOL) PO PRN (20:00)
[2020-10-19] MEDS ORDERED: HYDROcodone/APAP 5 MG/325 MG (LORTAB) TAB PO PRN (20:00)
[2020-10-19] MEDS ORDERED: CALCIUM CARBONATE 500 MG (TUMS) TAB.CHEW PO PRN (20:00)
[2020-10-19] MEDS ORDERED: MELATONIN 3 MG TABLET PO PRN (20:00)
[2020-10-19] MEDS ORDERED: BISACODYL 10 MG SUPP (DULCOLAX) PR PRN (20:00)
[2020-10-19] MEDS ORDERED: fentaNYL INJECTION 100 MCG/2 ML AMP IVP PRN (20:00)
[2020-10-19] MEDS ORDERED: ONDANSETRON 4 MG/2 ML (SDV) Z0FRAN IVP PRN (20:00)
[2020-10-19] MEDS ORDERED: DOCUSATE SODIUM 100 MG (COLACE) CAP PO PRN (20:00)
[2020-10-19] MEDS ORDERED: diphenhydrAMINE 25 MG TAB (BENADRYL) PO PRN (20:00)
[2020-10-19] MEDS ORDERED: LOPERAMIDE 2 MG (IMODIUM) TABLET PO PRN (20:00)
[2020-10-19] MEDS ORDERED: ALPRAZolam 0.25 MG (XANAX) TAB PO PRN (20:00)
[2020-10-19] MEDS ORDERED: ONDANSETRON 4 MG (ZOFRAN) ORAL DISSOLVE TAB PO PRN (20:00)
[2020-10-19] MEDS: SENNA W/DOCUSATE (SENOKOT S) TABLET PO SCH (20:22)
[2020-10-20 02:57] LABS: BASOPHILS % (AUTO) 0 % (0-10); EOSINOPHILS # (AUTO) 0.7 10^3/uL (0.0-0.3); EOSINOPHILS % (AUTO) 7 % (0-10); HEMATOCRIT 28 % (40-54); HEMOGLOBIN 9.2 g/dL (13.3-17.7); LYMPHOCYTES # (AUTO) 1.2 10^3/uL (1.0-4.0); LYMPHOCYTES % (AUTO) 11 % (12-44); MEAN CORPUSCULAR HEMOGLOBIN 30 pg (25-34); MEAN CORPUSCULAR HGB CONC 33 g/dL (32-36); MEAN CORPUSCULAR VOLUME 92 fL (80-99); MEAN PLATELET VOLUME 9.7 fL (9.0-12.2); MONOCYTES # (AUTO) 0.6 10^3/uL (0.0-1.0); MONOCYTES % (AUTO) 6 % (0-12); NEUTROPHILS # (AUTO) 8.1 10^3/uL (1.8-7.8); NEUTROPHILS % (AUTO) 76 % (42-75); PLATELET COUNT 156 10^3/uL (130-400); WHITE BLOOD COUNT 10.6 10^3/uL (4.3-11.0)
[2020-10-20 03:07] LABS: ALBUMIN 2.3 GM/DL (3.2-4.5); CHLORIDE 113 MMOL/L (98-107)
[2020-10-20 03:08] LABS: POTASSIUM 3.2 MMOL/L (3.6-5.0); SODIUM 144 MMOL/L (135-145)
[2020-10-20 03:09] LABS: CALCIUM 7.1 MG/DL (8.5-10.1)
[2020-10-20 03:10] LABS: GLUCOSE 92 MG/DL (70-105)
[2020-10-20 03:11] LABS: CARBON DIOXIDE 22 MMOL/L (21-32)
[2020-10-20 03:12] LABS: BILIRUBIN,TOTAL 0.7 MG/DL (0.1-1.0)
[2020-10-20 03:13] LABS: ALKALINE PHOSPHATASE 35 U/L (40-136)
[2020-10-20 03:14] LABS: CREATININE SERUM 0.81 MG/DL (0.60-1.30); GFR ESTIMATED > 60
[2020-10-20 03:15] LABS: BUN/CREATININE RATIO 19
[2020-10-20 03:16] LABS: ALANINE AMINOTRANSFERASE 10 U/L (0-55)
[2020-10-20] MEDS: NOREPINEPHRINE 4 MG/250 ML 250 ML IV SCH ×2 (03:30→08:07)
[2020-10-20] MEDS ORDERED: WATER (STERILE) FOR INJECTION 20 ML ONE ×3 (03:58→21:22)
[2020-10-20] MEDS ORDERED: MEROPENEM 1000 MG (MERREM) VIAL IV ONE ×2 (03:58→10:16)
[2020-10-20] MEDS ORDERED: LACTATED RINGERS 1,000 ML IV ONE (04:57)
--- NOTE | 2020-10-20 04:59 | Pulmonary Consultation ---
History of Present Illness History of Present Illness Date Seen by Provider: Oct 20, 2020 Time Seen by Provider: 04:56 Date of Admission Allergies and Home Medications Allergies Coded Allergies: atorvastatin (Verified Allergy, Unknown, 10/18/20) Past Dilcfth-Scuvgq-Bfiaxo Hx Past Med/Social Hx: Reviewed Nursing Past Med/Soc Hx, Reviewed and Corrections made Patient Social History Alcohol Use: Denies Use Recreational Drug Use: No Smoking Status: Never a Smoker Recent Foreign Travel: No Recent Hopitalizations: Yes Seasonal Allergies Seasonal Allergies: No Past Medical History Surgeries: Yes Coronary Stent Respiratory: No Cardiac: Yes Coronary Artery Disease, High Cholesterol, Hypertension Neurological: No Genitourinary: No Gastrointestinal: No Musculoskeletal: No Endocrine: No HEENT: No Cancer: No Psychosocial: No Integumentary: No Blood Disorders: No Sepsis Event Evaluation Height, Weight, BMI Height: '" Weight: lbs. oz. kg; 26.93 BMI Method: Exam Exam Vital Signs Date Time Temp Pulse Resp B/P (MAP) Pulse Ox O2 Delivery O2 Flow Rate FiO2 10/20/20 02:00 89 22 131/71 (91) 92 Nasal Cannula 2.00 10/20/20 01:00 85 10/20/20 01:00 85 17 121/65 (83) 93 Nasal Cannula 2.00 10/20/20 00:00 86 26 124/54 (77) 94 Nasal Cannula 2.00 10/19/20 23:42 36.8 89 22 118/66 (83) 94 Nasal Cannula 2.00 10/19/20 22:00 88 25 122/66 (84) 94 Nasal Cannula 2.00 10/19/20 21:00 84 23 127/83 (98) 94 Nasal Cannula 2.00 10/19/20 20:45 98 Nasal Cannula 2.00 10/19/20 20:00 97 Nasal Cannula 2.00 10/19/20 20:00 85 24 124/74 (91) 98 Nasal Cannula 2.00 10/19/20 19:53 37.0 60 135/72 (93) 94 10/19/20 19:00 79 10/19/20 19:00 79 20 139/80 (99) 99 Nasal Cannula 2.00 10/19/20 18:00 95 145/67 (93) 99 Nasal Cannula 2.00 10/19/20 17:00 81 99 Nasal Cannula 2.00 10/19/20 16:00 80 99 Nasal Cannula 4.00 10/19/20 15:45 90 99 10/19/20 15:30 86 22 100 10/19/20 15:15 81 100 10/19/20 15:00 84 23 100 Nasal Cannula 4.00 10/19/20 14:45 76 23 100 10/19/20 14:30 80 31 99 10/19/20 14:15 84 20 99 10/19/20 14:00 82 40 97 Nasal Cannula 4.00 10/19/20 13:45 79 24 99 10/19/20 13:30 80 21 100 10/19/20 13:15 82 24 100 10/19/20 13:00 84 24 99 Nasal Cannula 4.00 10/19/20 12:45 74 24 99 10/19/20 12:35 89 10/19/20 12:30 78 24 98 10/19/20 12:15 80 24 98 10/19/20 12:00 82 26 97 Nasal Cannula 4.00 10/19/20 11:57 36.3 10/19/20 11:47 19 98 Nasal Cannula 4.00 10/19/20 11:45 87 25 97 10/19/20 11:35 Nasal Cannula 2.00 10/19/20 11:30 84 25 93 10/19/20 11:15 80 24 92 10/19/20 11:00 75 23 92 Mechanical Ventilator 25.00 10/19/20 10:48 67 22 95 21 10/19/20 10:45 68 22 95 10/19/20 10:40 63 121/68 10/19/20 10:30 64 16 94 10/19/20 10:15 71 20 95 10/19/20 10:00 70 20 96 Mechanical Ventilator 25.00 10/19/20 09:45 66 19 96 10/19/20 09:30 70 19 96 10/19/20 09:15 64 18 97 10/19/20 09:00 97 Mechanical Ventilator 25 10/19/20 08:58 67 20 98 Mechanical Ventilator 25.00 10/19/20 08:45 64 16 98 10/19/20 08:30 68 17 98 10/19/20 08:15 67 18 97 Mechanical Ventilator 30.00 10/19/20 08:00 67 18 97 Mechanical Ventilator 30.00 12/13/20 07:45 73 18 97 10/19/20 07:30 70 21 97 10/19/20 07:25 36.2 10/19/20 07:10 69 19 99 25 10/19/20 07:00 67 10/19/20 07:00 71 19 98 Mechanical Ventilator 30.00 10/19/20 06:45 71 16 99 10/19/20 06:30 71 18 99 10/19/20 06:15 71 17 99 10/19/20 06:00 71 18 99 Mechanical Ventilator 30.00 10/19/20 05:46 71 140/59 10/19/20 05:45 35.8 75 19 115/75 99 Mechanical Ventilator 30 10/19/20 05:30 36.0 71 20 140/59 97 Mechanical Ventilator 30 10/19/20 05:00 74 21 97 Mechanical Ventilator 30.00 10/19/20 04:58 35.8 97 Mechanical Ventilator 30.00 I & O 10/20/20 07:00 Intake Total 60 ml Output Total 4350 ml Balance -4290 ml Height & Weight Height: '" Weight: lbs. oz. kg; 26.93 BMI Method: General Appearance: No Apparent Distress, Chronically ill, Thin HEENT: Normal ENT Inspection Neck: Full Range of Motion Respiratory: Lungs Clear, No Accessory Muscle Use, No Respiratory Distress, Other (on vent) Cardiovascular: Regular Rate, Rhythm Capillary Refill: Less Than 3 Seconds Gastrointestinal: normal bowel sounds, non tender, soft Extremity: Normal Capillary Refill Neurologic/Psychiatric: Other (sedated) Skin: Normal Color Lymphatic: No Adenopathy Results Lab Laboratory Tests 10/18/20 20:38 10/19/20 05:16 10/20/20 02:40 Assessment/Plan Assessment/Plan S/p VDRF -Extubated 10/19 PNA s/p severe sepsis -Merrem and vanco -souza cultures pending GIB -Surgery following -monitor Hb -S/p EGD x 2 and colonoscopy Hypokalemia -Replace CAD with elevated troponin -Cardiology is following DOMINIK LONGO DO Oct 20, 2020 04:59
[2020-10-20] MEDS: MEROPENEM 1,000 MG in WATER (STERILE) FOR INJECTION 20 ML IV SCH ×5 (05:07→21:39)
[2020-10-20] MEDS: MAGNESIUM 1 GM/100 ML IVPB 100 ML IV SCH (05:08)
[2020-10-20] MEDS: LACTATED RINGERS 1,000 ML IV SCH (05:08)
[2020-10-20] MEDS: POTASSIUM CL 10MEQ/50ML IVPB 50 ML IV SCH ×7 (05:08→09:40)
[2020-10-20] MEDS: KCL 20 MEQ TAB (K-DUR) PO SCH (05:08)
[2020-10-20] MEDS: SENNA W/DOCUSATE (SENOKOT S) TABLET PO SCH ×2 (08:07→21:43)
--- NOTE | 2020-10-20 08:23 | Diagnostic Imaging Report ---
INDICATION: Dyspnea COMPARISON: 10/18/2020 FINDINGS: Mixed interstitial and airspace opacity asymmetrically greater left than right is again noted but has improved in the interim with no adverse development. There is no pneumothorax. The ET tube has been removed. The lung volumes themselves stable. IMPRESSION: Mixed interstitial and airspace disease asymmetric greater left shows an improvement from prior unclear if this is improvements in pneumonia or asymmetric edema. No adverse change. Dictated by: Dictated on workstation # [id number]
--- NOTE | 2020-10-20 09:27 | Cardiology Progress Note ---
Subjective Date Seen by Provider: Oct 20, 2020 Time Seen by Provider: 09:22 Subjective/Events-last exam patient is laying down in bed, feeling better, denied any chest pain or shortness of breath at this time. Review of Systems General: No Chills, No Night Sweats; Fatigue, Malaise; No Appetite, No Other HEENT: No Head Aches, No Visual Changes, No Eye Pain, No Ear Pain, No Dysphasia, No Sinus Congestion, No Post Nasal Drip, No Sore Throat, No Other Pulmonary: No Dyspnea, No Cough, No Pleuritic Chest Pain, No Other Cardiovascular: No: Chest Pain, Palpitations, Orthopnea, Paroxysmal Noc. Dyspnea, Edema, Lt Headedness, Other Focused Exam Lactate Level 10/18/20 20:38: Lactic Acid Level 0.71 Objective-Cardiology Exam Last Set of Vital Signs Vital Signs 10/20/20 10/21/20 10/21/20 15:52 03:04 08:00 Temp 37.1 Pulse 71 Resp 18 B/P (MAP) 157/86 (109) Pulse Ox 93 O2 Delivery Room Air O2 Flow Rate 2.00 FiO2 92 Capillary Refill : Less Than 3 Seconds I&O Intake and Output 10/21/20 00:00 Intake Total 2120 ml Output Total 1300 ml Balance 820 ml Intake Oral 1450 ml IV Total 670 ml Output Urine Total 1300 ml # Bowel Movements 1 General: Alert, Oriented X3, Cooperative HEENT: Atraumatic, PERRLA Neck: Supple, No JVD, No Thyromegaly Lungs: Clear to Auscultation, Normal Air Movement Heart: Regular Rate, Normal S1, Normal S2, No Murmurs Abdomen: Normal Bowel Sounds, Soft, No Tenderness, No Hepatosplenomegaly, No Masses Extremities: No Clubbing, No Cyanosis, No Edema, Normal Pulses, No Tenderness/Swelling Skin: No Rashes, No Breakdown, No Significant Lesion Neuro: Normal Gait, Normal Speech, Strength at 5/5 X4 Ext, Normal Tone, Sensation Intact Psych/Mental Status: Mental Status NL, Mood NL Results Lab Laboratory Tests 10/21/20 05:05 A/P-Cardiology Admission Diagnosis GI bleed Anemia Type II myocardial infarction Coronary artery disease Assessment/Plan Acute GI bleed with anemia, EGD and colonoscopy were inconclusive, received blood transfusion, managed by primary care team Status post acute respiratory failure, improved at this time, managed by primary care team Coronary artery disease,recent 2 stents deployment done about 6 weeks ago, patient will need to be on dual antiplatelet therapy. There is an increased risk of acute stent thrombosis while he is off antiplatelet therapy. Elevated troponin level, type II myocardial infarction, no active chest pain at this time. Probably secondary to severe anemia, recommend keeping hemoglobin over 10 Hypertension, restart home medication monitor blood pressure Hyperlipidemia restart statin. Hypokalemia, replace and monitor, managed by primary care team Clinical Quality Measures DVT/VTE Risk/Contraindication: Risk Factor Score Per Nursin RFS Level Per Nursing on Admit: 4+=Very High Contraindications-Pharm: Other *list below* Other: MALOU KENYON MD Oct 20, 2020 09:27
[2020-10-20] MEDS ORDERED: polyethylene glycoL POWDER 17 GM (MIRALAX) PACK PO ONE (09:30)
--- NOTE | 2020-10-20 09:30 | NUR ---
WHEN DR BLOOD WAS HERE TO SEE PT HE STATED HE WAS OK WITH PT GETTING PLAVIX IF DR ORTIZ WANTED TO START PT ON IT. WHEN DR ORTIZ ROUNDED ON PT THIS RN INFORMED HER THAT DR BLOOD WAS OK WITH PT RECEIVING PLAVIX. DR ORTIZ STATED TO START PLAVIX 75MG PO DAILY IF OK WITH DR CHAVEZ, THIS RN CHECKED WITH DR CHAVEZ, DR CHAVEZ OKAYED PLAVIX.
[2020-10-20] MEDS ORDERED: CLOPIDOGREL 75 MG (PLAVIX) TABLET ONE (09:37)
[2020-10-20] MEDS: CLOPIDOGREL 75 MG (PLAVIX) TABLET PO SCH (09:40)
[2020-10-20] MEDS: PANTOPRAZOLE 40 MG (PROTONIX) TAB PO SCH (09:40)
--- NOTE | 2020-10-20 09:43 | NUR ---
Received dietary consult for vent status. Note pt was extubated on 10/19, per Bronwyn HARRISON. Will continue to follow and reassess as pt needs, intake, and status change. Amrit Smith MS RD LD [phone] cell
[2020-10-20] MEDS ORDERED: TROUGH ORDER-PHARMACY XX NR (10:00)
--- NOTE | 2020-10-20 10:04 | Progress Note - Surgery ---
JUAN MIGUEL ROA MED STUDENT 10/20/20 1004: Subjective Date Seen by a Provider: Oct 20, 2020 Time Seen by a Provider: 07:30 Subjective/Events-last exam Pt seen and examined. Pt was laying in bed resting, NAD. No complaints of pain, N/V, chills. Denies BM since episodes of diarrhea/melena over the weekend. Pt says he is feeling well with no complaints, and wants to know when he can go home. Review of Systems General: No Chills HEENT: No Head Aches Pulmonary: No Dyspnea Cardiovascular: Edema (Mild nonpitting edema to hands/feet); No: Chest Pain, Lt Headedness Gastrointestinal: No: Nausea, Vomiting, Abdominal Pain Genitourinary: No Dysuria; Other (tate in place) Neurological: No: Weakness, Numbness Focused Exam Lactate Level 10/18/20 20:38: Lactic Acid Level 0.71 Objective Exam Vital Signs Date Time Temp Pulse Resp B/P (MAP) Pulse Ox O2 Delivery O2 Flow Rate FiO2 10/20/20 08:23 36.9 79 24 124/87 (99) 95 Nasal Cannula 2.00 124/97 (106) 10/20/20 08:00 Nasal Cannula 2.00 10/20/20 06:00 82 22 142/76 (98) 94 Nasal Cannula 2.00 10/20/20 05:00 86 23 137/77 (97) 94 Nasal Cannula 2.00 10/20/20 04:00 37.0 81 22 137/77 (97) 94 Nasal Cannula 2.00 10/20/20 02:00 89 22 131/71 (91) 92 Nasal Cannula 2.00 10/20/20 01:00 85 10/20/20 01:00 85 17 121/65 (83) 93 Nasal Cannula 2.00 10/20/20 00:00 86 26 124/54 (77) 94 Nasal Cannula 2.00 10/19/20 23:42 36.8 89 22 118/66 (83) 94 Nasal Cannula 2.00 10/19/20 22:00 88 25 122/66 (84) 94 Nasal Cannula 2.00 10/19/20 21:00 84 23 127/83 (98) 94 Nasal Cannula 2.00 10/19/20 20:45 98 Nasal Cannula 2.00 10/19/20 20:00 97 Nasal Cannula 2.00 10/19/20 20:00 85 24 124/74 (91) 98 Nasal Cannula 2.00 10/19/20 19:53 37.0 60 135/72 (93) 94 10/19/20 19:00 79 10/19/20 19:00 79 20 139/80 (99) 99 Nasal Cannula 2.00 10/19/20 18:00 95 145/67 (93) 99 Nasal Cannula 2.00 10/19/20 17:00 81 99 Nasal Cannula 2.00 10/19/20 16:00 80 99 Nasal Cannula 4.00 10/19/20 15:45 90 99 10/19/20 15:30 86 22 100 10/19/20 15:15 81 100 10/19/20 15:00 84 23 100 Nasal Cannula 4.00 10/19/20 14:45 76 23 100 10/19/20 14:30 80 31 99 10/19/20 14:15 84 20 99 10/19/20 14:00 82 40 97 Nasal Cannula 4.00 10/19/20 13:45 79 24 99 10/19/20 13:30 80 21 100 10/19/20 13:15 82 24 100 10/19/20 13:00 84 24 99 Nasal Cannula 4.00 10/19/20 12:45 74 24 99 10/19/20 12:35 89 10/19/20 12:30 78 24 98 10/19/20 12:15 80 24 98 10/19/20 12:00 82 26 97 Nasal Cannula 4.00 10/19/20 11:57 36.3 10/19/20 11:47 19 98 Nasal Cannula 4.00 10/19/20 11:45 87 25 97 10/19/20 11:35 Nasal Cannula 2.00 10/19/20 11:30 84 25 93 10/19/20 11:15 80 24 92 10/19/20 11:00 75 23 92 Mechanical Ventilator 25.00 10/19/20 10:48 67 22 95 21 10/19/20 10:45 68 22 95 10/19/20 10:40 63 121/68 10/19/20 10:30 64 16 94 10/19/20 10:15 71 20 95 10/19/20 10:00 70 20 96 Mechanical Ventilator 25.00 I & O 10/20/20 07:00 Intake Total 180 ml Output Total 5295 ml Balance -5115 ml Capillary Refill : Less Than 3 Seconds General Appearance: No Apparent Distress, Chronically ill HEENT: PERRL/EOMI Neck: Full Range of Motion, Normal Inspection, Non Tender Respiratory: Chest Non Tender, Lungs Clear, No Accessory Muscle Use, No Respiratory Distress, Decreased Breath Sounds Cardiovascular: Regular Rate, Rhythm, No Gallop, No JVD, Normal Peripheral Pulses Gastrointestinal: non tender, soft, abnormal bowel sounds (hypoactive x4) Extremity: Normal Inspection, Non Tender Neurologic/Psychiatric: Alert, Oriented x3, No Motor/Sensory Deficits Skin: Normal Color, Warm/Dry Results Lab Laboratory Tests 10/19/20 11:06: Glucometer 81 10/20/20 02:40: White Blood Count 10.6, Red Blood Count 3.04L, Hemoglobin 9.2L, Hematocrit 28L, Mean Corpuscular Volume 92, Mean Corpuscular Hemoglobin 30, Mean Corpuscular Hemoglobin Concent 33, Red Cell Distribution Width 15.2H, Platelet Count 156, Mean Platelet Volume 9.7, Immature Granulocyte % (Auto) 0, Neutrophils (%) (Auto) 76H, Lymphocytes (%) (Auto) 11L, Monocytes (%) (Auto) 6, Eosinophils (%) (Auto) 7, Basophils (%) (Auto) 0, Neutrophils # (Auto) 8.1H, Lymphocytes # (Auto) 1.2, Monocytes # (Auto) 0.6, Eosinophils # (Auto) 0.7H, Basophils # (Auto) 0.0, Immature Granulocyte # (Auto) 0.0, Sodium Level 144, Potassium Level 3.2L, Chloride Level 113H, Carbon Dioxide Level 22, Anion Gap 9, Blood Urea Nitrogen 15, Creatinine 0.81, Estimat Glomerular Filtration Rate > 60, BUN/Creatinine Ratio 19, Glucose Level 92, Calcium Level 7.1L, Corrected Calcium 8.5, Total Bilirubin 0.7, Aspartate Amino Transf (AST/SGOT) 17, Alanine Aminotransferase (ALT/SGPT) 10, Alkaline Phosphatase 35L, Total Protein 4.0L, Albumin 2.3L Microbiology 10/19/20 MRSA Screen - Final, Complete MRSA not isolated 10/18/20 Blood Culture - Preliminary, Resulted No growth Assessment/Plan Assessment/Plan Assessment/Plan CAD with 2x stents placed 6wks ago, placed on anticoagulation(Effient and ASA) Massive GI bleed - EGD and colonoscopy on 10/17 showed no signs active bleed. Nuclear bleeding scan negative. Anemia - stable at Hgb 9.2 Hypokalemia - 3.2 L sided pneumonia Sepsis Pt ok to start back on Plavix and advance to clear liquid diet. Continue to monitor labs. Continue Protonix. Capsule endoscopy is likely needed if GI bleed reoccurs. Clinical Quality Measures DVT/VTE Risk/Contraindication: Risk Factor Score Per Nursin RFS Level Per Nursing on Admit: 4+=Very High Contraindications-Pharm: Other *list below* Other: DANYELLE BURKS DO 10/21/20 1005: Subjective Subjective/Events-last exam Patient hgb stable. No complaints of abdominal pain. No more bleeding Denies n/v fever sweats chills shortness of breath or chest pain at this time. Objective Exam General Appearance: No Apparent Distress, WD/WN HEENT: PERRL/EOMI Neck: Full Range of Motion, Non Tender, Other (right ij central line) Respiratory: Chest Non Tender, No Accessory Muscle Use, No Respiratory Distress Cardiovascular: Regular Rate, Rhythm, No JVD Gastrointestinal: non tender, soft, no organomegaly; No guarding, No rebound, No tenderness Extremity: Normal Capillary Refill, Non Tender, No Calf Tenderness Neurologic/Psychiatric: Alert, Oriented x3, Normal Mood/Affect Skin: Normal Color, Warm/Dry Lymphatic: No Adenopathy Assessment/Plan Assessment/Plan Assessment/Plan CAD with 2x stents placed 6wks ago, placed on anticoagulation(Effient and ASA) Massive GI bleed - EGD and colonoscopy on 10/17 showed no signs active bleed. Nuclear bleeding scan negative. Anemia - stable at Hgb 9.2 Hypokalemia - 3.2 L sided pneumonia Sepsis hgb stable need to start plavix, okay to do so, higher risk of rebleed can start clears follow labs transfuse prbc as needed Supervisory-Addendum Brief Verification & Attestation Participated in pt care: history, MDM, physical Personally performed: exam, history, MDM, supervision of care Care discussed with: Medical Student Procedures: n/a Results interpretation: Verified all documentation Verification and Attestation of Medical Student E/M Service A medical student performed and documented this service in my presence. I reviewed and verified all information documented by the medical student and made modifications to such information, when appropriate. I personally performed the physical exam and medical decision making. Danyelle Blood, Oct 20, 2020,10:06 JUAN MIGUEL ROA MED STUDENT Oct 20, 2020 10:04 DANYELLE BLOOD DO Oct 21, 2020 10:05
[2020-10-20] MEDS: PROPOFOL DRIP (ICU) 100 ML IV SCH (10:15)
--- NOTE | 2020-10-20 10:19 | Progress Note - Hospitalist ---
Subjective HPI/CC On Admission Date Seen by Provider: Oct 20, 2020 Time Seen by Provider: 09:15 CC: VDRF from left sided PNA s/p severe sepsis and massive GI bleed with no source found on EGD x 2 and Colonoscopy HPI: This is a 74[address] patient of Dr Servin and Dr Kong who presented to the [facility] ER with melena and hematochezia with no abdominal pain. Patient was found to be hypotensive and tachycardic and very pale even though hgb was 9.9 so patient was give 2 units of blood and Dr Alicia was consulted. Upon further evaluation he was found to have had 2 stents placed [address] Kong and was on Effient and ASA since that time of which he stopped taking 10/12/20 was his last dose due to bleeding per rectum ( I spoke to Dr Kong in-depth on 10/16 and he was very concerned about his new stents and highly recommended Plavix to be restarted but he was bleeding so profoundly the executive decision was made to not start that med due to risks for bleeding outweighed benefits). EGD was performed and pyloric stenosis dx but no source of bleeding. Dr Dugan was then consulted since Dr Alicia was OOT and he performed Colonoscopy revealing extensive clots and blood in colon without exact source identified and he repeated the EGD also and no source identified. Patient continued to have more and more melena and hematochezia and ultimately was transfused for total of 6 units prior to colonoscopy but on Tuesday evening at 1900 he decompensated with hypotension and hypoxia with left sided chest pain so he was moved to ICU and family called and central line was placed and intubated by nurse assistant store manager in a controlled manner. Patient continued to bleed requiring 7th unit of blood and ICU room was secured at [facility] in the midst of hospital diversion for all hospitals in 300+ mild radius due to VDRF and continued bleeding and the need for RBC tagged bleeding scan to identify bleeding source which is likely small bowel. PNA was treated with addition of Corey and Vanc empirically after BCx obtained during rapid response status and confirmed severe sepsis with elevated lactic acid s/p 30cc/hr NS IVF per severe sepsis protocol and did not require pressor therapy. Updated daughter. After rounding patient was successfully extubated and able to communicate. Lasix 20mg IV given due to aggressive IVF and total 9 units of blood the past 5 days. Subjective/Events-last exam Pt doing very well Uneventful night Appreciate Dr. Dugan consultation who agrees with the initiation of Plavix and Dr. Villarreal is now on board PT and OT and inpatient rehab will be ordered Clear liquid diet will be started Hgb 9.2 and stable Albumin 2.3 Potassium 3.2 Miralax will be given Review of Systems General: Fatigue, Malaise Pulmonary: Dyspnea Focused Exam Lactate Level 10/18/20 20:38: Lactic Acid Level 0.71 Objective Exam Vital Signs Vital Signs Date Time Temp Pulse Resp B/P (MAP) Pulse Ox O2 Delivery O2 Flow Rate FiO2 10/21/20 03:04 37.1 73 18 128/74 (92) 92 Nasal Cannula 2.00 10/20/20 15:52 92 Capillary Refill : Less Than 3 Seconds General Appearance: No Apparent Distress, WD/WN, Chronically ill Respiratory: Chest Non Tender, Lungs Clear, No Accessory Muscle Use, No Respiratory Distress, Decreased Breath Sounds Cardiovascular: Regular Rate, Rhythm Neurologic/Psychiatric: Alert, Oriented x3, No Motor/Sensory Deficits, Normal M ood/Affect Results/Procedures Lab Patient resulted labs reviewed. Assessment/Plan Assessment and Plan Assess & Plan/Chief Complaint Assessment: s/p VDRF vent day # 3 intubated at [facility] during rapid response episode now extubated 10/19/20 at 1145am Left sided PNA s/p severe sepsis received 30cc/kg IVF without use of pressor therapy Massive GIB with no source of active bleeding on EGD x 2 and Colonoscopy suspect small bowel source rbc bleeding scan completed results pending CAD 2 stents placed 6 weeks ago previously on Effient and ASA last dose 10/12/20 life threatening bleed requires holding anti-platelet therapy Elevated troponin Plan: Vent- now extubated Move to 4th floor Transfused 9 units of blood RBC tagged nuclear scan results pending- results in revealed no active GIB PNA HLIVF Start Plavix to protect new coronary stents Diagnosis/Problems Diagnosis/Problems (1) Ventilator dependence (2) GI bleed (3) Anemia (4) Transfusion of platelets during current hospitalization (5) CAD (coronary artery disease) (6) Presence of stent in coronary artery (7) Pneumonia involving left lung (8) Severe sepsis (9) Lab test negative for COVID-19 virus Clinical Quality Measures DVT/VTE Risk/Contraindication: Risk Factor Score Per Nursin RFS Level Per Nursing on Admit: 4+=Very High Contraindications-Pharm: Other *list below* Other: RANI VALDEZ DO Oct 20, 2020 10:18
--- NOTE | 2020-10-20 10:36 | Physical Therapy Evaluation ---
PT Evaluation-General Medical Diagnosis Admission Date Oct 18, 2020 at 19:21 Medical Diagnosis: sepsis/pneumonia Onset Date: Oct 18, 2020 Therapy Diagnosis Therapy Diagnosis: debility/weakness Precautions Precautions/Isolations: Fall Prevention, Standard Precautions Referral Physician: Abilio Reason for Referral: Evaluation/Treatment Medical History Pertinent Medical History: CAD, HTN Additional Medical History recent stent placement Current History Transfer from [facility] secondary to hematochezia Reviewed History: Yes Social History Home: Single Level Current Living Status: Spouse Entry Into Home: Stairs With Railing PT Steps Into Home: 3 Prior Prior Level of Function SCALE: Activities may be completed with or without assistive devices. 9-Ythvbnakwn-zjicsbn completes the activity by him/herself with no assistance from a helper. 5-Set-up or Clean-up Assistance-helper sets up or cleans up; patient completes activity. [place] assists only prior to or following the activity. 4-Supervision or Touching Assistance-helper provides verbal cues and/or touching/steadying and/or contact guard assistance as patient completes activity. Assistance may be provided throughout the activity or intermittently. 3-Partial/Moderate Assistance-helper does LESS THAN HALF the effort. [place] lifts, holds or supports trunk or limbs, but provides less than half the effort. 2-Substantial/Maximal Assistance-helper does MORE THAN HALF the effort. [place] lifts or holds trunk or limbs and provides more than half the effort. 4-Nwejkbmza-gxgpou does ALL the effort. Patient does none of the effort to complete the activity. Or, the assistance of 2 or more helpers is required for the patient to complete the activity. If activity was not attempted, code reason: 7-Patient Refused. 9-Not Applicable-not attempted and the patient did not perform the activity before the current illness, exacerbation or injury. 10-Not Attempted due to Environmental Limitations-(lack of equipment, weather restraints, etc.). 88-Not Attempted due to Medical Conditions or Safety Concerns. Bed Mobility: 6 Transfers (B,C,W/C): 6 Gait: 6 Stairs: 6 Indoor Mobility (Ambulation): Independent Stairs: Independent Prior Devices Use: None PT Evaluation-Current Subjective Patient agrees to PT. Objective Patient Orientation: Person, Time, Situation Attachments: Oxygen, Garcia Catheter, IV ROM/Strength ROM Lower Extremities bilateral LE WFL Strength Lower Extremities 3+/5 grossly bilateral LE Integumentary/Posture Integumentary refer to nursing notes Bowel Incontinence: No Bladder Incontinence: Garcia Cath Posture WFL Neuromuscular (Tone, Coordination, Reflexes) grossly intact Sensory Vision: Functional Hearing: Functional Transfers Lying to Sitting/Side of Bed(Q: 4 Sit to Stand (QC): 3 Chair/Hdb-kq-Lhlos Xfer(QC): 3 Gait Does the Patient Walk?: Yes Mode of Locomotion: Walk Anticipated Mode of Locomotion: Walk Walk 10 feet (QC): 3 Walk 50 ft with 2 Turns(QC): 88 Walk 150 ft (QC): 88 Gait Assistive Device: FWW Comments/Gait Description slow, slightly unsteady with use of FWW Wheelchair Training Does the Pt Use a Wheelchair?: No Balance Sitting Static: Normal Sitting Dynamic: Normal Standing Static: Fair Standing Dynamic: Fair Assessment/Needs 74 y.o. male, will benefit from skilled PT to address functional strength and mobility to improve current LOF to safely return to home with spouse at maximum LOF. Rehab Potential: Fair PT Color Sprayer Goals Color Sprayer Goals PT [facility] Goals Time Frame: Nov 08, 2020 Roll Left & Right (QC): 6 Sit to Lying (QC): 6 Lying-Sitting on Side/Bed(QC): 6 Sit to Stand (QC): 6 Chair/Lvu-da-Cvcpg Xfer(QC): 6 Toilet Transfer (QC): 6 Does the Patient Walk: Yes Walk 10 feet (QC): 6 Walk 50ft with 2 Turns (QC): 6 Walk 150 ft (QC): 6 1 Step (curb) (QC): 6 4 Steps (QC): 6 PT Plan Problem List Problem List: Activity Tolerance, Functional Strength, Balance, Gait, Transfer, Bed Mobility Treatment/Plan Treatment Plan: Continue Plan of Care Treatment Plan: Bed Mobility, Education, Functional Activity Deborah, Functional Strength, Gait, Safety, Therapeutic Exercise, Transfers Treatment Duration: Nov 08, 2020 Frequency: 6 times per week Estimated Hrs Per Day: .5 hour per day Patient and/or Family Agrees t: Yes Time/GCodes Time In: 926 Time Out: 943 Total Billed Treatment Time: 17 Total Billed Treatment 1 visit EVModC 17 min TYRONE FIGUEROA PT Oct 20, 2020 10:36
--- NOTE | 2020-10-20 13:02 | NUR ---
IRF Evaluation Determination: Accepted Chart review complete and findings discussed with Dr. Knox - patient accepted. This advertising copy writer notified that patient has a relative that works at [facility], and would like the patient admitted there for further rehabilitation. Will continue to follow. Thank you for this referral.
--- NOTE | 2020-10-20 13:45 | NUR ---
Patient transferred to [facility] per [facility] accompanied by staff. REPORT RECEIVED FROM HUNTER GUTIERREZ. AMRIT IS ALERT AND ORIENTED. ORIENTATION TO ROOM AND ENVIRONMENT.
--- NOTE | 2020-10-20 14:24 | Occupational Therapy Eval ---
OT Evaluation-General/PLF Medical Diagnosis Admission Date Oct 18, 2020 at 19:21 Medical Diagnosis: sepsis/pneumonia Onset Date: Oct 18, 2020 Therapy Diagnosis Therapy Diagnosis: Decreased ADL status Precautions Precautions/Isolations: Fall Prevention, Standard Precautions Referral Physician: Abilio Referral Reason: Activity Tolerance, Self Care, Evaluation/Treatment, Strengthening/ROM Medical History Pertinent Medical History: CAD, HTN Current History sepsis/ GI bleed/ L side PNA. intubated 10/19. Reviewed History: Yes Social History Home: Single Level Current Living Status: Spouse Entry Into Home: Stairs With Railing Steps Into Home: 3 ADL-Prior Level of Function SCALE: Activities may be completed with or without assistive devices. 7-Atmyjjsziz-qptuggi completes the activity by him/herself with no assistance from a helper. 5-Set-up or Clean-up Assistance-helper sets up or cleans up; patient completes activity. [place] assists only prior to or following the activity. 4-Supervision or Touching Assistance-helper provides verbal cues and/or touching/steadying and/or contact guard assistance as patient completes activity. Assistance may be provided throughout the activity or intermittently. 3-Partial/Moderate Assistance-helper does LESS THAN HALF the effort. [place] lifts, holds or supports trunk or limbs, but provides less than half the effort. 2-Substantial/Maximal Assistance-helper does MORE THAN HALF the effort. [place] lifts or holds trunk or limbs and provides more than half the effort. 6-Alhoevalc-iehzbx does ALL the effort. Patient does none of the effort to complete the activity. Or, the assistance of 2 or more helpers is required for the patient to complete the activity. If activity was not attempted, code reason: 7-Patient Refused. 9-Not Applicable-not attempted and the patient did not perform the activity before the current illness, exacerbation or injury. 10-Not Attempted due to Environmental Limitations-(lack of equipment, weather restraints, etc.). 88-Not Attempted due to Medical Conditions or Safety Concerns. ADL PLOF Comments Pt was IND without AD PLOF. Self Care: Independent Functional Cognition: Independent DME/Equipment: Bath Chair, Grab Bars, Shower, Tub/Shower DME/Equipment Comments tub/ shower and walkin with gb/ sc. 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 Pt asking OT to assist in dialing 's number. Agrees to hold 10 min. Pt agrees to tx, denies pain. Mental Status/Objective Patient Orientation: Person, Place, Situation Attachments: Garcia Catheter Current Glasses/Contacts: Yes (at home, unable to read without) Hearing Aids: No Hand Dominance: Right Upper Extremity ROM WFL BUE Upper Extremity Coordination WFL BUE Upper Extremity Sensation WFL BUE Upper Extremity Strength WFL BUE (4/5) ADL-Treatment Eating (QC): 6 (per pt and clinical judgment. ) On/Off Footwear (QC): 6 Toileting Hygiene (QC): 7 Other Treatments Pt supine to sit with min A. Sits EOB, slight c/o dizziness. Pt's ROM/ MMT WFL. Pt moves slowly. Denies pain. Pt doffs/ dons socks with IND EOB. Pt stands at walker level, cues for pushing off bed. Pt stands ~30 sec prior to stating need for sit due to increased coughing/ phlegm. Pt returns to sit, able to manage mucous. Pt sit to stand with good ability pushing from bed. Takes 2 steps toward HOB/ sits/ returns to supine with SBA. Pt agrees he is weaker than PLOF. Pt educated on benefits of upright positioning, HOB elevated to increased incline. Pt is educated on continuation of OT services, pt agrees. Pt's is dialed for pt. All needs met, call light in reach. Education OT Patient Education: Correct positioning, Purpose of tx/functional activities, Safety issues, Transfer techniques Teaching Recipient: Patient Teaching Methods: Demonstration, Discussion Response to Teaching: Verbalize Understanding, Return Demonstration OT Hardwood Floor Layer Goals Longterm Goals Time Frame: Oct 27, 2020 Eating (QC): 6 Oral Hygiene (QC): 6 Toileting Hygiene (QC): 6 Shower/Bathe Self (QC): 6 Upper Body Dressing (QC): 6 Lower Body Dressing (QC): 6 On/Off Footwear (QC): 6 Additional Goals: 1-Demonstrate ADL Tasks, 2-Verbalize Understanding, 3- ImproveStrength/Deborah 1=Demonstrate adherence to instructed precautions during ADL tasks. 2=Patient will verbalize/demonstrate understanding of assistive devices/modifications for ADL. 3=Patient will improve strength/tolerance for activity to enable patient to perform ADL's. OT Education/Plan Problem List/Assessment Assessment: Decreased Activ Tolerance, Decreased UE Strength, Dependent Transfers, Impaired Bed Mobility, Impaired Funct Balance, Impaired I ADL's, Impaired Self-Care Skills Discharge Recommendations Plan/Recommendations: Continue POC Therapy Discharge Recommendati: Home & Family, Post Acute OT Treatment Plan/Plan of Care Treatment,Training & Education: Yes Patient would benefit from OT for education, treatment and training to promote independence in ADL's, mobility, safety and/or upper extremity function for ADL's. Plan of Care: ADL Retraining, Functional Mobility, UE Funct Exercise/Act Treatment Duration: Oct 27, 2020 Frequency: 5 times per week Estimated Hrs Per Day: .25 hour per day Agreement: Yes Rehab Potential: Fair Time/GCodes Start Time: 14:04 Stop Time: 14:14 Total Time Billed (hr/min): 10 Billed Treatment Time 1, EVM (10) TOY LOO OTKam Oct 20, 2020 14:24
[2020-10-20] MEDS ORDERED: ASPI-1238 PO (14:39)
[2020-10-20] MEDS ORDERED: PRAS10TA10 PO (14:39)
[2020-10-20] MEDS ORDERED: PANT40TA52 PO (14:39)
[2020-10-20] MEDS ORDERED: AMLO-250 PO (14:39)
--- NOTE | 2020-10-20 14:39 | NUR ---
SPOKE WITH THE PT, ALSO CALLED HIS (HAM) AND WENT THRU THE EXT MED HISTORY TO COMPLETE THE MED REC HAM WAS ABLE TO TELL ME ALL THE PTS MEDICATIONS AND HOW HE TAKES EACH. IN AUGUST 2020 PT HAS BEEN PRESCRIBED ATORVASTATIN 40MG BUT ACCORDING TO HAM THE PT IS NOW ON EFFIENT 10MG OTC MEDS: NONE
--- NOTE | 2020-10-20 16:00 | NUR ---
MEROPENEM [id number](1000MG) OMNICELL OVERRIDE FOR ABX ADMIN. SINGLE 1000MG BOTTLE UNAVAILABLE
[2020-10-20] MEDS: MEROPENEM 500 MG VIAL (MERREM) IV ONE ×2 (16:33→16:35)
--- NOTE | 2020-10-20 17:00 | NUR ---
Pt's daughter Marianne is the installation tech at [facility] and would like her dad to be placed there for Skilled Care rehab. Pt is also agreeable to this continued care plan. Faxed Admissions packet their review and possible acceptance.
--- NOTE | 2020-10-20 17:11 | NUR ---
DR CHAVEZ NOTIFIED OF PATIENT'S BP, HOME MEDICATION NORVASC? NEW ORDERS TO RESTART NORVASC
[2020-10-20] MEDS ORDERED: amLODIPine 5 MG (NORVASC) TAB ONE (17:16)
[2020-10-20] MEDS: amLODIPine 5 MG (NORVASC) TAB PO SCH (17:20)
[2020-10-20 18:34] VITALS: BP 168/83
[2020-10-20 21:00] VITALS: BP 151/75
[2020-10-20] MEDS ORDERED: MEROPENEM 500 MG VIAL (MERREM) IV ONE (21:22)
[2020-10-21] VITALS (7 sets, daily range): BP systolic 116–157; BP diastolic 65–86
[2020-10-21] MEDS ORDERED: MEROPENEM 1000 MG (MERREM) VIAL IV ONE ×2 (03:06→22:33)
[2020-10-21] MEDS ORDERED: WATER (STERILE) FOR INJECTION 20 ML ONE ×2 (03:06→22:33)
[2020-10-21] MEDS: MEROPENEM 1,000 MG in WATER (STERILE) FOR INJECTION 20 ML IV SCH ×3 (03:15→22:48)
[2020-10-21] MEDS: LACTATED RINGERS 1,000 ML IV SCH (03:21)
[2020-10-21 05:12] LABS: HEMOGLOBIN 9.9 g/dL (13.3-17.7)
[2020-10-21 05:28] LABS: ALBUMIN 2.4 GM/DL (3.2-4.5); CHLORIDE 107 MMOL/L (98-107); POTASSIUM 3.2 MMOL/L (3.6-5.0); SODIUM 137 MMOL/L (135-145)
[2020-10-21 05:29] LABS: CALCIUM 7.3 MG/DL (8.5-10.1)
[2020-10-21 05:30] LABS: GLUCOSE 102 MG/DL (70-105)
[2020-10-21 05:31] LABS: TOTAL PROTEIN 4.5 GM/DL (6.4-8.2)
[2020-10-21 05:32] LABS: BILIRUBIN,TOTAL 0.7 MG/DL (0.1-1.0); CARBON DIOXIDE 24 MMOL/L (21-32)
[2020-10-21] MEDS: POTASSIUM CL 10MEQ/50ML IVPB 50 ML IV SCH ×3 (05:32→06:39)
[2020-10-21 05:34] LABS: ALKALINE PHOSPHATASE 42 U/L (40-136); GFR ESTIMATED > 60
[2020-10-21 05:35] LABS: BUN/CREATININE RATIO 19
[2020-10-21 05:37] LABS: ALANINE AMINOTRANSFERASE 10 U/L (0-55)
--- NOTE | 2020-10-21 05:55 | Progress Note - Hospitalist ---
Subjective HPI/CC On Admission Date Seen by Provider: Oct 21, 2020 Time Seen by Provider: 10:00 CC: VDRF from left sided PNA s/p severe sepsis and massive GI bleed with no source found on EGD x 2 and Colonoscopy HPI: This is a 74yoWM patient of Dr Servin and Dr Kong who presented to the [facility] with melena and hematochezia with no abdominal pain. Patient was found to be hypotensive and tachycardic and very pale even though hgb was 9.9 so patient was give 2 units of blood and Dr Alicia was consulted. Upon further evaluation he was found to have had 2 stents placed [address] Kong and was on Effient and ASA since that time of which he stopped taking 10/12/20 was his last dose due to bleeding per rectum ( I spoke to Dr Kong in-depth on 10/16 and he was very concerned about his new stents and highly recommended Plavix to be restarted but he was bleeding so profoundly the executive decision was made to not start that med due to risks for bleeding outweighed benefits). EGD was performed and pyloric stenosis dx but no source of bleeding. Dr Dugan was then consulted since Dr Alicia was OOT and he performed Colonoscopy revealing extensive clots and blood in colon without exact source identified and he repeated the EGD also and no source identified. Patient continued to have more and more melena and hematochezia and ultimately was transfused for total of 6 units prior to colonoscopy but on Tuesday evening at 1900 he decompensated with hypotension and hypoxia with left sided chest pain so he was moved to ICU and family called and central line was placed and intubated by nurse outside machinist helper in a controlled manner. Patient continued to bleed requiring 7th unit of blood and ICU room was secured at [facility] in the midst of hospital diversion for all hospitals in 300+ mild radius due to VDRF and continued bleeding and the need for RBC tagged bleeding scan to identify bleeding source which is likely small bowel. PNA was treated with addition of Corey and Vanc empirically after BCx obtained during rapid response status and confirmed severe sepsis with elevated lactic acid s/p 30cc/hr NS IVF per severe sepsis protocol and did not require pressor therapy. Updated daughter. After rounding patient was successfully extubated and able to communicate. Lasix 20mg IV given due to aggressive IVF and total 9 units of blood the past 5 days. Subjective/Events-last exam Hgb 9.9, no bloody stools and no stools at all Will start MiraLax and Lactulose Advancing diet since he is hungry, approved by Dr. Dugan Will discontinue catheter IS will be initiated Overall much improved Review of Systems General: Fatigue, Malaise Focused Exam Lactate Level Objective Exam Vital Signs Vital Signs Date Time Temp Pulse Resp B/P (MAP) Pulse Ox O2 Delivery O2 Flow Rate FiO2 10/22/20 04:00 36.9 79 16 132/75 (94) 90 Nasal Cannula 2.00 10/20/20 15:52 92 Capillary Refill : Less Than 3 Seconds General Appearance: No Apparent Distress, WD/WN, Chronically ill Respiratory: Chest Non Tender, No Accessory Muscle Use, No Respiratory Distress, Crackles, Decreased Breath Sounds Cardiovascular: Regular Rate, Rhythm, No Edema, No Gallop, No JVD, No Murmur, Normal Peripheral Pulses Neurologic/Psychiatric: Alert, Oriented x3, No Motor/Sensory Deficits, Normal Mood/Affect Results/Procedures Lab Laboratory Tests 10/21/20 05:05 Patient resulted labs reviewed. Assessment/Plan Assessment and Plan Assess & Plan/Chief Complaint Assessment: s/p VDRF vent day # 3 intubated at [facility] during rapid response episode now extubated 10/19/20 at 1145am Left sided PNA s/p severe sepsis received 30cc/kg IVF without use of pressor therapy Massive GIB with no source of active bleeding on EGD x 2 and Colonoscopy suspect small bowel source rbc bleeding scan completed results pending CAD 2 stents placed 6 weeks ago previously on Effient and ASA last dose 10/12/20 life threatening bleed requires holding anti-platelet therapy Elevated troponin Plan: Vent- now extubated Move to 4th floor Transfused 9 units of blood RBC tagged nuclear scan results pending- results in revealed no active GIB PNA HLIVF Start Plavix to protect new coronary stents 10/21/20: Monitor hgb Monitor for melena Plavix to protect stents placed 7 weeks ago Abx Advance diet IS Diagnosis/Problems Diagnosis/Problems (1) Ventilator dependence (2) GI bleed (3) Anemia (4) Transfusion of platelets during current hospitalization (5) CAD (coronary artery disease) (6) Presence of stent in coronary artery (7) Pneumonia involving left lung (8) Severe sepsis (9) Lab test negative for COVID-19 virus Clinical Quality Measures DVT/VTE Risk/Contraindication: Risk Factor Score Per Nursin RFS Level Per Nursing on Admit: 4+=Very High Contraindications-Pharm: Other *list below* Other: RANI VALDEZ DO Oct 21, 2020 05:55
--- NOTE | 2020-10-21 06:57 | Progress Note - Surgery ---
JUAN MIGUEL ROA MED STUDENT 10/21/20 0657: Subjective Date Seen by a Provider: Oct 21, 2020 Time Seen by a Provider: 06:20 Subjective/Events-last exam Pt seen and examined. Pt is laying in bed, resting, NAD. He states that he has no new complaints and is aware of the plan to transfer to IRF for PT/OT and restarting antiplatelet therapy for his stents. Review of Systems General: No Chills HEENT: No Head Aches Pulmonary: No Dyspnea, No Cough Cardiovascular: No: Chest Pain, Palpitations, Lt Headedness Gastrointestinal: No: Nausea, Vomiting, Abdominal Pain Neurological: No: Weakness, Numbness Focused Exam Lactate Level 10/18/20 20:38: Lactic Acid Level 0.71 Objective Exam Vital Signs Date Time Temp Pulse Resp B/P (MAP) Pulse Ox O2 Delivery O2 Flow Rate FiO2 10/21/20 03:04 37.1 73 18 128/74 (92) 92 Nasal Cannula 2.00 10/21/20 00:14 36.9 77 18 148/78 (101) 92 Nasal Cannula 2.00 10/20/20 21:20 92 Nasal Cannula 2.00 10/20/20 21:00 37.6 62 19 151/75 (100) 87 Room Air 151/75 (100) 10/20/20 21:00 37.6 62 19 151/75 (100) 87 Room Air 10/20/20 21:00 Nasal Cannula 2.00 10/20/20 18:34 168/83 (111) 10/20/20 16:23 36.8 75 18 185/88 (120) 93 Room Air 10/20/20 15:52 Nasal Cannula 92 10/20/20 13:35 36.0 71 18 155/83 (107) 92 Room Air 10/20/20 11:46 36.7 73 20 155/87 (109) 94 Room Air 10/20/20 11:46 36.7 20 155/87 (109) 10/20/20 08:23 36.9 79 24 124/87 (99) 95 Nasal Cannula 2.00 124/97 (106) 10/20/20 08:00 Nasal Cannula 2.00 I & O 10/21/20 07:00 Intake Total 2010 ml Output Total 1600 ml Balance 410 ml Capillary Refill : Less Than 3 Seconds General Appearance: No Apparent Distress, WD/WN, Chronically ill HEENT: PERRL/EOMI Neck: Full Range of Motion, Normal Inspection, Non Tender Respiratory: Chest Non Tender, Lungs Clear, No Accessory Muscle Use, No Respiratory Distress, Decreased Breath Sounds Cardiovascular: Regular Rate, Rhythm Gastrointestinal: non tender, soft, abnormal bowel sounds (hypoactive x4) Extremity: Normal Inspection, Non Tender Neurologic/Psychiatric: Alert, Oriented x3, No Motor/Sensory Deficits, Normal Mood/Affect Skin: Normal Color, Warm/Dry Lymphatic: No Adenopathy Results Lab Laboratory Tests 10/21/20 05:05: White Blood Count 9.0, Red Blood Count 3.31L, Hemoglobin 9.9L, Hematocrit 30L, Mean Corpuscular Volume 90, Mean Corpuscular Hemoglobin 30, Mean Corpuscular Hemoglobin Concent 33, Red Cell Distribution Width 14.4, Platelet Count 184, Mean Platelet Volume 9.0, Sodium Level 137, Potassium Level 3.2L, Chloride Level 107, Carbon Dioxide Level 24, Anion Gap 6, Blood Urea Nitrogen 13, Creatinine 0.70, Estimat Glomerular Filtration Rate > 60, BUN/Creatinine Ratio 19, Glucose Level 102, Calcium Level 7.3L, Corrected Calcium 8.6, Total Bilirubin 0.7, Aspartate Amino Transf (AST/SGOT) 17, Alanine Aminotransferase (ALT/SGPT) 10, Alkaline Phosphatase 42, Troponin I 0.151H, Total Protein 4.5L, Albumin 2.4L Microbiology 10/19/20 MRSA Screen - Final, Complete MRSA not isolated 10/18/20 Blood Culture - Preliminary, Resulted No growth Assessment/Plan Assessment/Plan Assessment/Plan CAD with 2x stents placed 6wks ago Massive GI bleed - EGD and colonoscopy on 10/17 showed no signs active bleed. Nuclear bleeding scan negative. No current s/s of active bleeding Anemia - improving, Hgb 9.9 Hypokalemia - 3.2 L sided pneumonia - resolved Sepsis - resolved GI bleeding appears to have resolved, will continue to monitor. Plavix restarted, continue clear liquid diet. Continue to monitor labs. Continue Protonix. Capsule endoscopy is likely needed if GI bleed reoccurs. Clinical Quality Measures DVT/VTE Risk/Contraindication: Risk Factor Score Per Nursin RFS Level Per Nursing on Admit: 4+=Very High Contraindications-Pharm: Other *list below* Other: DANYELLE BURKS DO 10/21/20 1833: Subjective Subjective/Events-last exam Patient states he is doing well. He is not having abdominal pain. Patient states he had a bowel movement earlier which was nonbloody. Patient hemoglobin is stable. He is tolerating diet. He denies any new complaints. He denies any nausea vomiting fever sweats chills shortness of breath or chest pain. Objective Exam General Appearance: No Apparent Distress, Chronically ill, Other (Right IJ ce ntral line) HEENT: PERRL/EOMI, Normal ENT Inspection Neck: Normal Inspection, Non Tender Respiratory: Chest Non Tender, No Accessory Muscle Use, No Respiratory Distress Cardiovascular: Regular Rate, Rhythm, No JVD Gastrointestinal: non tender, soft Extremity: Normal Inspection, Non Tender Neurologic/Psychiatric: Alert, Oriented x3, No Motor/Sensory Deficits, Normal Mood/Affect Skin: Normal Color, Warm/Dry Lymphatic: No Adenopathy Assessment/Plan Assessment/Plan Assessment/Plan CAD with 2x stents placed 6wks ago Massive GI bleed - EGD and colonoscopy on 10/17 showed no signs active bleed. Nuclear bleeding scan negative. No current s/s of active bleeding Anemia - improving, Hgb 9.9 Hypokalemia - 3.2 L sided pneumonia - resolved Sepsis - resolved GI bleeding appears to have resolved, will continue to monitor. Plavix restarted, advance diet since hemoglobin stable. Continue to monitor labs. Continue Protonix. Capsule endoscopy is likely needed on outpatient basis.. Supervisory-Addendum Brief Verification & Attestation Participated in pt care: history, MDM, physical Personally performed: exam, history, MDM, supervision of care Care discussed with: Medical Student Procedures: n/a Results interpretation: Verified all documentation Verification and Attestation of Medical Student E/M Service A medical student performed and documented this service in my presence. I reviewed and verified all information documented by the medical student and made modifications to such information, when appropriate. I personally performed the physical exam and medical decision making. Danyelle Blood, Oct 21, 2020,18:33 JUAN MIGUEL ROA MED STUDENT Oct 21, 2020 06:57 DANYELLE BLOOD DO Oct 21, 2020 18:33
--- NOTE | 2020-10-21 08:51 | Diagnostic Imaging Report ---
INDICATION: Shortness of breath Portable chest 4:38 AM Right IJ central line tip projects over the right atrium. There is left perihilar infiltrate. There are no effusions or pneumothoraces. IMPRESSION: Left perihilar infiltrate unchanged compared to the previous day. Dictated by: Dictated on workstation # [id number]
--- NOTE | 2020-10-21 08:57 | Cardiology Progress Note ---
Subjective Date Seen by Provider: Oct 21, 2020 Time Seen by Provider: 08:56 Subjective/Events-last exam Patient in bed, no new complaints. Denies any chest pain Review of Systems General: No Chills, No Night Sweats; Fatigue; No Malaise, No Appetite, No Other HEENT: No Head Aches, No Visual Changes, No Eye Pain, No Ear Pain, No Dysphasia, No Sinus Congestion, No Post Nasal Drip, No Sore Throat, No Other Pulmonary: No Dyspnea, No Cough, No Pleuritic Chest Pain, No Other Cardiovascular: No: Chest Pain, Palpitations, Orthopnea, Paroxysmal Noc. Dyspnea, Edema, Lt Headedness, Other Focused Exam Lactate Level 10/18/20 20:38: Lactic Acid Level 0.71 Objective-Cardiology Exam Last Set of Vital Signs Vital Signs 10/20/20 10/21/20 10/21/20 15:52 03:04 08:00 Temp 37.1 Pulse 71 Resp 18 B/P (MAP) 157/86 (109) Pulse Ox 93 O2 Delivery Room Air O2 Flow Rate 2.00 FiO2 92 Capillary Refill : Less Than 3 Seconds I&O Intake and Output 10/21/20 00:00 Intake Total 2120 ml Output Total 1300 ml Balance 820 ml Intake Oral 1450 ml IV Total 670 ml Output Urine Total 1300 ml # Bowel Movements 1 General: Alert, Oriented X3, Cooperative HEENT: Atraumatic, PERRLA Neck: Supple, No JVD, No Thyromegaly Lungs: Clear to Auscultation, Normal Air Movement Heart: Regular Rate, Normal S1, Normal S2, No Murmurs Abdomen: Normal Bowel Sounds, Soft, No Tenderness, No Hepatosplenomegaly, No Masses Extremities: No Clubbing, No Cyanosis, No Edema, Normal Pulses, No Ten derness/Swelling Skin: No Rashes, No Breakdown, No Significant Lesion Neuro: Normal Gait, Normal Speech, Strength at 5/5 X4 Ext, Normal Tone, Sensation Intact Psych/Mental Status: Mental Status NL, Mood NL Results Lab Laboratory Tests 10/21/20 05:05 A/P-Cardiology Admission Diagnosis GI bleed Anemia Type II myocardial infarction Coronary artery disease Assessment/Plan Acute GI bleed with anemia, EGD and colonoscopy were inconclusive, received blood transfusion, managed by primary care team Status post acute respiratory failure, improved at this time, managed by primary care team Coronary artery disease,recent 2 stents deployment done about 6 weeks ago, patient will need to be on dual antiplatelet therapy. There is an increased ri sk of acute stent thrombosis while he is off antiplatelet therapy. Currently on Plavix Elevated troponin level, type II myocardial infarction, no active chest pain at this time. Probably secondary to severe anemia, recommend keeping hemoglobin over 10. Troponin is trending down Hypertension, continue to montior. Hyperlipidemia, maintained on Prasugrel as an outpatient Hypokalemia, I will give additional potassium 40 mEq, recommend monitoring potassium as an outpatient Clinical Quality Measures DVT/VTE Risk/Contraindication: Risk Factor Score Per Nursin RFS Level Per Nursing on Admit: 4+=Very High Contraindications-Pharm: Other *list below* Other: LUCI KIM Oct 21, 2020 08:57 MALOU CHAVEZ MD Oct 21, 2020 09:20
[2020-10-21] MEDS ORDERED: amLODIPine 5 MG (NORVASC) TAB PO SCH (09:00)
[2020-10-21] MEDS: PANTOPRAZOLE 40 MG (PROTONIX) TAB PO SCH (09:14)
[2020-10-21] MEDS: CLOPIDOGREL 75 MG (PLAVIX) TABLET PO SCH (09:14)
[2020-10-21] MEDS: amLODIPine 5 MG (NORVASC) TAB PO SCH (09:14)
[2020-10-21] MEDS: SENNA W/DOCUSATE (SENOKOT S) TABLET PO SCH ×2 (09:14→20:23)
[2020-10-21] MEDS ORDERED: KCL 20 MEQ TAB (K-DUR) PO NR (09:30)
--- NOTE | 2020-10-21 10:20 | NUR ---
Spoke with and updated patients daughter at this time.
[2020-10-21] MEDS ORDERED: polyethylene glycoL POWDER 17 GM (MIRALAX) PACK PO NR (10:30)
[2020-10-21] MEDS ORDERED: LACTULOSE SYRUP 10GM/15ML (ENULOSE) 30ML UDC PO NR (10:30)
--- NOTE | 2020-10-21 10:59 | Occupational Ther Daily Note ---
OT Current Status-Daily Note Subjective Pt seen in room, up in bed, agreeable to OT. No pain mentioned. Pt denied need for ADLs. Appearance Alert, cooperative Mental Status/Objective Attachments: [place] Lock ADL-Treatment Therapy Code Descriptions/Definitions Functional [place] Measure: 0=Not Assessed/NA 4=Minimal Assistance 1=Total Assistance 5=Supervision or Setup 2=Maximal Assistance 6=Modified [place] 3=Moderate Assistance 7=Complete IndependenceSCALE: Activities may be completed with or without assistive devices. 3-Zqpaiojxam-vjtdvbl completes the activity by him/herself with no assistance from a helper. 5-Set-up or Clean-up Assistance-helper sets up or cleans up; patient completes activity. [place] assists only prior to or following the activity. 4-Supervision or Touching Assistance-helper provides verbal cues and/or touching/steadying and/or contact guard assistance as patient completes activity. Assistance may be provided throughout the activity or intermittently. 3-Partial/Moderate Assistance-helper does LESS THAN HALF the effort. [place] lifts, holds or supports trunk or limbs, but provides less than half the effort. 2-Substantial/Maximal Assistance-helper does MORE THAN HALF the effort. [place] lifts or holds trunk or limbs and provides more than half the effort. 9-Zpqulotui-gtrmwz does ALL the effort. Patient does none of the effort to complete the activity. Or, the assistance of 2 or more helpers is required for the patient to complete the activity. If activity was not attempted, code reason: 7-Patient Refused. 9-Not Applicable-not attempted and the patient did not perform the activity before the current illness, exacerbation or injury. 10-Not Attempted due to Environmental Limitations-(lack of equipment, weather restraints, etc.). 88-Not Attempted due to Medical Conditions or Safety Concerns. Other Treatment Pt education on two bilat UE exercises that he can do in his room, either in bed or up in chair, to strengthen UEs for ADLs and functional mobility. Exercises were demonstrated and pt return demo for 10 reps each. He completed 10 reps additional bilat UE exercises at elbows, wrists and hands. He was asked to return demo exercises and needed visual and verbal cues to do them correctly. Pt left up in bed, all needs met, O2 in place. Education OT Patient Education: Exercise program, Purpose of tx/functional activities Teaching Recipient: Patient Teaching Methods: Demonstration, Discussion Response to Teaching: Verbalize Understanding, Return Demonstration, Reinforcement Needed OT Fpc Goals Fpc Goals Time Frame: Oct 27, 2020 Eating (QC): 6 Oral Hygiene (QC): 6 Toileting Hygiene (QC): 6 Shower/Bathe Self (QC): 6 Upper Body Dressing (QC): 6 Lower Body Dressing (QC): 6 On/Off Footwear (QC): 6 Additional Goals: 1-Demonstrate ADL Tasks, 2-Verbalize Understanding, 3- ImproveStrength/Deborah 1=Demonstrate adherence to instructed precautions during ADL tasks. 2=Patient will verbalize/demonstrate understanding of assistive devices/modifications for ADL. 3=Patient will improve strength/tolerance for activity to enable patient to perform ADL's. OT Education/Plan Discharge Recommendations Plan/Recommendations: Continue POC Treatment Plan/Plan of Care Patient would benefit from OT for education, treatment and training to promote independence in ADL's, mobility, safety and/or upper extremity function for ADL's. Plan of Care: ADL Retraining, Functional Mobility, UE Funct Exercise/Act Treatment Duration: Oct 27, 2020 Frequency: 5 times per week Estimated Hrs Per Day: .25 hour per day Agreement: Yes Rehab Potential: Fair Time/GCodes Start Time: 10:35 Stop Time: 10:45 Total Time Billed (hr/min): 10 Billed Treatment Time visit, 10 minutes exercise CALI JEFF OT Oct 21, 2020 10:59
--- NOTE | 2020-10-21 11:16 | NUR ---
Pt has been accepted by [facility] with his admission tentatively planned for tomorrow. pt will need a negative Co-Vid test completed within 48 hours of discharge. Advised Stanley HARRISON. Pt agreeable to placement as daughter is toll line repairer and granddaughter is a SALES AND TRAINING SPECIALIST there.
--- NOTE | 2020-10-21 11:46 | Physical Therapy Daily Note ---
PT Daily Note-Current Subjective Patient much more alert and agreeable to participate with therapy. Mental Status Patient Orientation: Normal For Age Attachments: Oxygen (2L), Garcia Catheter Transfers SCALE: Activities may be completed with or without assistive devices. 3-Djfhvwqdqg-xsowspy completes the activity by him/herself with no assistance from a helper. 5-Set-up or Clean-up Assistance-helper sets up or cleans up; patient completes activity. [place] assists only prior to or following the activity. 4-Supervision or Touching Assistance-helper provides verbal cues and/or touching/steadying and/or contact guard assistance as patient completes activity. Assistance may be provided throughout the activity or intermittently. 3-Partial/Moderate Assistance-helper does LESS THAN HALF the effort. [place] lifts, holds or supports trunk or limbs, but provides less than half the effort. 2-Substantial/Maximal Assistance-helper does MORE THAN HALF the effort. [place] lifts or holds trunk or limbs and provides more than half the effort. 1-Tklwytfnt-pxzxoo does ALL the effort. Patient does none of the effort to complete the activity. Or, the assistance of 2 or more helpers is required for the patient to complete the activity. If activity was not attempted, code reason: 7-Patient Refused. 9-Not Applicable-not attempted and the patient did not perform the activity before the current illness, exacerbation or injury. 10-Not Attempted due to Environmental Limitations-(lack of equipment, weather restraints, etc.). 88-Not Attempted due to Medical Conditions or Safety Concerns. Lying to Sitting/Side of Bed(Q: 5 Sit to Stand (QC): 4 Chair/Fdf-tx-Ljxfs Xfer(QC): 4 Gait Training Does the Patient Walk?: Yes Distance: 500' Walk 10 feet (QC): 4 Walk 50 ft with 2 Turns(QC): 4 Walk 150 ft (QC): 4 Gait Assistive Device: FWW safe and functional with no deviation with FWW (O2 in place 2 L) Assessment Patient much improved on this date. Tolerated treatment well. PT Penitentiary Goals [place] Goals PT Penitentiary Goals Time Frame: Nov 08, 2020 Roll Left & Right (QC): 6 Sit to Lying (QC): 6 Lying-Sitting on Side/Bed(QC): 6 Sit to Stand (QC): 6 Chair/Eem-cq-Mzacc Xfer(QC): 6 Toilet Transfer (QC): 6 Does the Patient Walk: Yes Walk 10 feet (QC): 6 Walk 50ft with 2 Turns (QC): 6 Walk 150 ft (QC): 6 1 Step (curb) (QC): 6 4 Steps (QC): 6 PT Plan Treatment/Plan Treatment Plan: Continue Plan of Care Treatment Plan: Bed Mobility, Education, Functional Activity Deborah, Functional Strength, Gait, Safety, Therapeutic Exercise, Transfers Treatment Duration: Nov 08, 2020 Frequency: 6 times per week Estimated Hrs Per Day: .5 hour per day Patient and/or Family Agrees t: Yes Time/GCodes Time In: 1121 Time Out: 1134 Total Billed Treatment Time: 13 Total Billed Treatment 1 visit FA 13 min TYRONE FIGUEROA PT Oct 21, 2020 11:46
--- NOTE | 2020-10-21 14:10 | NUR ---
"RD ASSESSMENT PMHx: CAD; hypercholesterolemia; HTN; PT INTERACTION: Pt was awake and pleasant during nutrition assessment. Pt states current appetite is good. Note avg PO intake 42% x3meal, per chart review. Pt states following a regular diet at home, and has no issues with chewing/swallowing food. Pt states no recent issues with nausea, vomiting, constipation, or diarrhea. Note last BM was 10/20, and pt currently on bowel regimen of senna BID, per chart review. Pt states unsure of recent wt changes. Note unable to determine recent wt hx, per chart review. ABNORMAL NUTRITION-RELATED LAB VALUES LOW: K 3.2; Ca 7.3; Pro 4.5; alb 2.4; HIGH: Est. kcal needs: 6452-3763 kcal | 15-18 kcal/kg Est. Pro needs: 98-118 g Pro | 1.0-1.2 g Pro/kg PES STATEMENT: Inadequate oral intake (NI-2.1) related to loss of appetite, as evidenced by pt interview, and avg PO intake of 42% x3meal. INTERVENTION: Continue with current diet order of Regular diet. Pt may benefit from nutrition supplementation if PO intake declines. Encouraged pt to eat when able. Will continue to follow and reassess as pt needs, intake, and status change. Mylene HERRERA, MS RD LD [phone] cell"
[2020-10-21] MEDS ORDERED: polyethylene glycoL POWDER 17 GM (MIRALAX) PACK PO SCH (21:00)
[2020-10-22] VITALS: BP 142/74
[2020-10-22 04:00] VITALS: BP 132/75
[2020-10-22 05:08] LABS: BASOPHILS % (AUTO) 0 % (0-10); EOSINOPHILS # (AUTO) 0.4 10^3/uL (0.0-0.3); EOSINOPHILS % (AUTO) 6 % (0-10); HEMATOCRIT 30 % (40-54); HEMOGLOBIN 9.8 g/dL (13.3-17.7); LYMPHOCYTES % (AUTO) 13 % (12-44); MEAN CORPUSCULAR HEMOGLOBIN 30 pg (25-34); MEAN CORPUSCULAR HGB CONC 33 g/dL (32-36); MEAN CORPUSCULAR VOLUME 91 fL (80-99); MONOCYTES # (AUTO) 0.6 10^3/uL (0.0-1.0); MONOCYTES % (AUTO) 8 % (0-12); NEUTROPHILS # (AUTO) 5.4 10^3/uL (1.8-7.8); NEUTROPHILS % (AUTO) 72 % (42-75); PLATELET COUNT 198 10^3/uL (130-400); WHITE BLOOD COUNT 7.6 10^3/uL (4.3-11.0)
[2020-10-22 05:19] LABS: ALBUMIN 2.4 GM/DL (3.2-4.5); CHLORIDE 107 MMOL/L (98-107); POTASSIUM 3.7 MMOL/L (3.6-5.0); SODIUM 138 MMOL/L (135-145)
[2020-10-22 05:20] LABS: CALCIUM 7.2 MG/DL (8.5-10.1)
[2020-10-22 05:21] LABS: GLUCOSE 120 MG/DL (70-105)
[2020-10-22 05:22] LABS: TOTAL PROTEIN 4.5 GM/DL (6.4-8.2)
[2020-10-22 05:23] LABS: BILIRUBIN,TOTAL 0.5 MG/DL (0.1-1.0); CARBON DIOXIDE 25 MMOL/L (21-32)
[2020-10-22 05:25] LABS: ALKALINE PHOSPHATASE 39 U/L (40-136); CREATININE SERUM 0.75 MG/DL (0.60-1.30); GFR ESTIMATED > 60
[2020-10-22] MEDS: LACTATED RINGERS 1,000 ML IV SCH (05:25)
[2020-10-22] MEDS: POTASSIUM CL 10MEQ/50ML IVPB 50 ML IV SCH (05:25)
[2020-10-22 05:26] LABS: BUN/CREATININE RATIO 20
[2020-10-22 05:28] LABS: ALANINE AMINOTRANSFERASE 9 U/L (0-55)
[2020-10-22] MEDS: MEROPENEM 1,000 MG in WATER (STERILE) FOR INJECTION 20 ML IV SCH (06:34)
[2020-10-22] MEDS ORDERED: CLOP75TA28 PO (06:47)
--- NOTE | 2020-10-22 07:46 | Progress Note - Surgery ---
JUAN MIGUEL ROA MED STUDENT 10/22/20 0746: Subjective Date Seen by a Provider: Oct 22, 2020 Time Seen by a Provider: 06:15 Subjective/Events-last exam Pt seen and examined. Pt was resting in bed, NAD. Denies chest pain, SOB, N/V. Pt had 2x bowel movements yesterday that he states was formed and without blood or black color. Review of Systems General: No Chills HEENT: No Head Aches Pulmonary: No Dyspnea Cardiovascular: No: Chest Pain, Lt Headedness Gastrointestinal: No: Nausea, Vomiting, Abdominal Pain Genitourinary: No Dysuria Objective Exam Vital Signs Date Time Temp Pulse Resp B/P (MAP) Pulse Ox O2 Delivery O2 Flow Rate FiO2 10/22/20 04:00 36.9 79 16 132/75 (94) 90 Nasal Cannula 2.00 10/22/20 00:00 37.2 67 17 142/74 (96) 92 Room Air 10/21/20 21:00 Nasal Cannula 2.00 10/21/20 20:00 36.4 70 16 157/75 (102) 94 Room Air 10/21/20 16:00 36.5 71 14 142/81 (101) 95 Room Air 10/21/20 15:35 Nasal Cannula 2.00 10/21/20 12:04 36.0 65 18 141/80 (100) 91 Nasal Cannula 2.00 10/21/20 09:00 Room Air 10/21/20 08:00 37.1 71 18 157/86 (109) 93 Room Air I & O 10/22/20 07:00 Intake Total 690 ml Output Total 1100 ml Balance -410 ml Capillary Refill : Less Than 3 Seconds General Appearance: No Apparent Distress, WD/WN, Chronically ill HEENT: PERRL/EOMI, Normal ENT Inspection Neck: Normal Inspection, Non Tender Respiratory: Chest Non Tender, No Accessory Muscle Use, No Respiratory Distress, Decreased Breath Sounds Cardiovascular: Regular Rate, Rhythm, No Edema, No Gallop, No JVD, No Murmur Gastrointestinal: non tender, soft Extremity: Normal Inspection, Non Tender Neurologic/Psychiatric: Alert, Oriented x3, No Motor/Sensory Deficits, Normal Mood/Affect Skin: Normal Color, Warm/Dry Lymphatic: No Adenopathy Results Lab Laboratory Tests 10/21/20 11:10: Coronavirus 2019 ([facility]) Negative 10/22/20 04:50: White Blood Count 7.6, Red Blood Count 3.30L, Hemoglobin 9.8L, Hematocrit 30L, Mean Corpuscular Volume 91, Mean Corpuscular Hemoglobin 30, Mean Corpuscular Hemoglobin Concent 33, Red Cell Distribution Width 14.2, Platelet Count 198, Mean Platelet Volume 9.0, Immature Granulocyte % (Auto) 1, Neutrophils (%) (Auto) 72, Lymphocytes (%) (Auto) 13, Monocytes (%) (Auto) 8, Eosinophils (%) (Auto) 6, Basophils (%) (Auto) 0, Neutrophils # (Auto) 5.4, Lymphocytes # (Auto) 1.0, Monocytes # (Auto) 0.6, Eosinophils # (Auto) 0.4H, Basophils # (Auto) 0.0, Immature Granulocyte # (Auto) 0.0, Sodium Level 138, Potassium Level 3.7, Chloride Level 107, Carbon Dioxide Level 25, Anion Gap 6, Blood Urea Nitrogen 15, Creatinine 0.75, Estimat Glomerular Filtration Rate > 60, BUN/Creatinine Ratio 20, Glucose Level 120H, Calcium Level 7.2L, Corrected Calcium 8.5, Total Bilirubin 0.5, Aspartate Amino Transf (AST/SGOT) 12, Alanine Aminotransferase (ALT/SGPT) 9, Alkaline Phosphatase 39L, Total Protein 4.5L, Albumin 2.4L Microbiology 10/19/20 MRSA Screen - Final, Complete MRSA not isolated 10/18/20 Blood Culture - Preliminary, Resulted No growth Assessment/Plan Assessment/Plan Assessment/Plan CAD with 2x stents placed 6wks ago Massive GI bleed - EGD and colonoscopy on 10/17 showed no signs active bleed. Nuclear bleeding scan negative. No current s/s of active bleeding Anemia - stable, Hgb 9.8 Hypokalemia - improved, 3.7 L sided pneumonia - resolved Sepsis - resolved Labs stable/improving. GI bleeding appears to have resolved, will continue to monitor. Plavix restarted, advance diet since hemoglobin stable. Continue to monitor labs. Continue Protonix. Capsule endoscopy is likely needed on outpatient basis. Clinical Quality Measures DVT/VTE Risk/Contraindication: Risk Factor Score Per Nursin RFS Level Per Nursing on Admit: 4+=Very High Contraindications-Pharm: Other *list below* Other: DANYELLE BURKS DO 10/22/20 1321: Subjective Subjective/Events-last exam No bloody bowel movements. Feeling better. No abdominal pain. Hgb stable. Tolerating diet. Denies n/v fever sweats chills shortness of breath or chest pain at this time. Objective Exam General Appearance: No Apparent Distress, WD/WN, Chronically ill HEENT: PERRL/EOMI, Normal ENT Inspection Neck: Normal Inspection, Non Tender Respiratory: Chest Non Tender, No Accessory Muscle Use, No Respiratory Distress Cardiovascular: Regular Rate, Rhythm, No JVD Gastrointestinal: non tender, soft Extremity: Normal Inspection, Non Tender Neurologic/Psychiatric: Alert, Oriented x3, No Motor/Sensory Deficits, Normal Mood/Affect Skin: Normal Color, Warm/Dry Lymphatic: No Adenopathy Assessment/Plan Assessment/Plan Assessment/Plan CAD with 2x stents placed 6wks ago Massive GI bleed - EGD and colonoscopy on 10/17 showed no signs active bleed. Nuclear bleeding scan negative. No current s/s of active bleeding Anemia - stable, Hgb 9.8 Hypokalemia - improved, 3.7 L sided pneumonia - resolved Sepsis - resolved Labs stable/improving. GI bleeding appears to have resolved, will continue to monitor. Plavix restarted, advance diet since hemoglobin stable. Continue to monitor labs. Continue Protonix. Capsule endoscopy is likely needed on outpatient basis with GI. Supervisory-Addendum Brief Verification & Attestation Participated in pt care: history, MDM, physical Personally performed: exam, history, MDM, supervision of care Care discussed with: Medical Student Procedures: n/a Results interpretation: Verified all documentation Verification and Attestation of Medical Student E/M Service A medical student performed and documented this service in my presence. I reviewed and verified all information documented by the medical student and made modifications to such information, when appropriate. I personally performed the physical exam and medical decision making. Danyelle Blood, Oct 22, 2020,13:19 JUAN MIGUEL ROA MED STUDENT Oct 22, 2020 07:46 DANYELLE BLOOD DO Oct 22, 2020 13:21
[2020-10-22 08:00] VITALS: BP 137/73
[2020-10-22] MEDS: SENNA W/DOCUSATE (SENOKOT S) TABLET PO SCH (08:10)
[2020-10-22] MEDS: CLOPIDOGREL 75 MG (PLAVIX) TABLET PO SCH (08:10)
[2020-10-22] MEDS: PANTOPRAZOLE 40 MG (PROTONIX) TAB PO SCH (08:10)
[2020-10-22] MEDS: amLODIPine 5 MG (NORVASC) TAB PO SCH (08:10)
--- NOTE | 2020-10-22 08:12 | Diagnostic Imaging Report ---
Portable erect AP chest at 313 hours. INDICATION: Dyspnea. FINDINGS: The heart is stable in size when compared to the prior exam of 10/21/2020. The atelectasis/infiltrate in the left perihilar region and left lung base seen on the prior study is again evident and not significantly changed. The right lung remains relatively clear. The mediastinum is not widened. The osseous structures are intact. The central venous catheter on the right seen previously is similar in position to the prior exam. IMPRESSION: Stable chest. There has been no adverse change since the prior study. Dictated by: Dictated on workstation # [id number]
--- NOTE | 2020-10-22 08:20 | Discharge Inst-Skilled Nursing ---
Discharge Inst-Skilled NF Reconcile Patient Problems Problems Reviewed?: Yes Chief Complaint CC: VDRF from left sided PNA s/p severe sepsis and massive GI bleed with no source found on EGD x 2 and Colonoscopy HPI: This is a 74yoWM patient of Dr Servin and Dr Kong who presented [place] [facility] with melena and hematochezia with no abdominal pain. Patient was found to be hypotensive and tachycardic and very pale even though hgb was 9.9 so patient was give 2 units of blood and Dr Alicia was consulted. Upon further evaluation he was found to have had 2 stents placed [address] Kong and was on Effient and ASA since that time of which he stopped taking 10/12/20 was his last dose due to bleeding per rectum ( I spoke to Dr Kong in-depth on 10/16 and he was very concerned about his new stents and highly recommended Plavix to be restarted but he was bleeding so profoundly the executive decision was made to not start that med due to risks for bleeding outweighed benefits). EGD was performed and pyloric stenosis dx but no source of bleeding. Dr Dugan was then consulted since Dr Alicia was OOT and he performed Colonoscopy revealing extensive clots and blood in colon without exact source identified and he repeated the EGD also and no source identified. Patient continued to have more and more melena and hematochezia and ultimately was transfused for total of 6 units prior to colonoscopy but on Tuesday evening at 1900 he decompensated with hypotension and hypoxia with left sided chest pain so he was moved to ICU and family called and central line was placed and intubated by nurse cupola liner helper in a controlled manner. Patient continued to bleed requiring 7th unit of blood and ICU room was secured at [facility] in the midst of hospital diversion for all hospitals in [address] [facility] radius due to VDRF and continued bleeding and the need for RBC tagged bleeding scan to identify bleeding source which is likely small bowel. PNA was treated with addition of Corey and Vanc empirically after BCx obtained during rapid response status and confirmed severe sepsis with elevated lactic acid s/p 30cc/hr NS IVF per severe sepsis protocol and did not require pressor therapy. Updated daughter. After rounding patient was successfully extubated and able to communicate. Lasix 20mg IV given due to aggressive IVF and total 9 units of blood the past 5 days. Patient Instructions Patient Problems: Severe GIB Severe anemia received 9 units of blood CAD stents placed 7 weeks ago Consult/Follow Up/Orders Follow Up Appt.: dr Servin 2 weeks Skilled NF Admit to: [facility] ([facility]) I certify that SNF services are required to be given on an inpatient basis because of the above named patient's need for half-way care on a c ontinuing basis for the conditions(s) for which he/she was receiving inpatient hospital services prior to his/her transfer to the SNF. Halfway Facility Order: Nursing Services, Stamping Bench Die Maker-Evaluate & Treat, Physical Therapy-Evaluate & Treat Oxygen Delivery Method: Nasal Cannula Discharge Diet: No Restrictions Daily Activity as Tolerated: Yes Resuscitation Status: Full Code New & Resume Previous Orders New Medications: Clopidogrel Bisulfate (Clopidogrel) 75 Mg Tablet 75 MG PO DAILY for 365 Days, TAB Continued Medications: Amlodipine Besylate (Amlodipine Besylate) 5 Mg Tablet 5 MG PO DAILY, TAB Aspirin (Aspirin EC) 81 Mg Tablet. 81 MG PO DAILY, TAB Pantoprazole Sodium (Pantoprazole Sodium) 40 Mg Tablet. 40 MG PO DAILY, TAB Discontinued Medications: Prasugrel HCl (Prasugrel HCl) 10 Mg Tablet 10 MG PO DAILY, TAB Brook Ortiz Oct 22, 2020 08:19 BROOK ORTIZ DO Oct 22, 2020 08:20
--- NOTE | 2020-10-22 08:21 | Discharge Summary ---
Discharge Summary Hospital Course Was the Problem List Reviewed?: Yes Problems/Dx: (1) Ventilator dependence (2) GI bleed (3) Anemia (4) Transfusion of platelets during current hospitalization (5) CAD (coronary artery disease) (6) Presence of stent in coronary artery (7) Pneumonia involving left lung (8) Severe sepsis (9) Lab test negative for COVID-19 virus Hospital Course Date of Admission: Oct 18, 2020 at 19:21 Admission Diagnosis : Family Physician/Provider: No,Local Physician Date of Discharge: 10/22/20 Discharge Diagnosis: Massive GIB likely distal small intestine, CAD recent stents [address] Kong, Left PNA, s/p VDRF Hospital Course: Hospital Course: Pt had a complicated hospital course for five days after her was moved from [facility] ICU after intubated due to severe sepsis and left sided pneumonia maintained on Meropenem and Vancomycin. He received a total of 9 units of blood between the seven units at [facility] and the two units at [facility] because of massive GI bleed likely distal small intestine since colonoscopy showed evidence of clotting in blood but no active bleeding and EGD was performed x2. Effient and Aspirin were held even though stents had been placed six weeks before. He overall did very well, was able to be extubated quickly. He moved down to step down and then fourth floor and ultimately recovered nicely. He was able to participate in PT and was able to maintain on O2 along with restarting his home medication and the restart of Plavix anti platelets and will be monitored closely and discharged to [facility] for skilled therapy. Labs and Pending Lab Test: Laboratory Tests 10/21/20 11:10: Coronavirus 2019 ([facility]) Negative 10/22/20 04:50: White Blood Count 7.6, Red Blood Count 3.30L, Hemoglobin 9.8L, Hematocrit 30L, Mean Corpuscular Volume 91, Mean Corpuscular Hemoglobin 30, Mean Corpuscular Hemoglobin Concent 33, Red Cell Distribution Width 14.2, Platelet Count 198, Mean Platelet Volume 9.0, Immature Granulocyte % (Auto) 1, Neutrophils (%) (Auto) 72, Lymphocytes (%) (Auto) 13, Monocytes (%) (Auto) 8, Eosinophils (%) (Auto) 6, Basophils (%) (Auto) 0, Neutrophils # (Auto) 5.4, Lymphocytes # (Auto) 1.0, Monocytes # (Auto) 0.6, Eosinophils # (Auto) 0.4H, Basophils # (Auto) 0.0, Immature Granulocyte # (Auto) 0.0, Sodium Level 138, Potassium Level 3.7, Chloride Level 107, Carbon Dioxide Level 25, Anion Gap 6, Blood Urea Nitrogen 15, Creatinine 0.75, Estimat Glomerular Filtration Rate > 60, BUN/Creatinine Ratio 20, Glucose Level 120H, Calcium Level 7.2L, Corrected Calcium 8.5, Total Bilirubin 0.5, Aspartate Amino Transf (AST/SGOT) 12, Alanine Aminotransferase (ALT/SGPT) 9, Alkaline Phosphatase 39L, Total Protein 4.5L, Albumin 2.4L Microbiology 10/19/20 MRSA Screen - Final, Complete MRSA not isolated 10/18/20 Blood Culture - Preliminary, Resulted No growth Home Meds Active Clopidogrel (Clopidogrel Bisulfate) 75 Mg Tablet 75 Mg PO DAILY 365 Days Reported Pantoprazole Sodium 40 Mg Tablet. 40 Mg PO DAILY Aspirin EC (Aspirin) 81 Mg Tablet. 81 Mg PO DAILY Amlodipine Besylate 5 Mg Tablet 5 Mg PO DAILY Assessment/Pt Instructions NH rounds with Kaia Webster and Dr Knox Discharge Planning: <30 minutes discharge planning Discharge Instructions Discharge Diet: No Restrictions Discharge Physical Examination Vital Signs Vital Signs Date Time Temp Pulse Resp B/P (MAP) Pulse Ox O2 Delivery O2 Flow Rate FiO2 10/22/20 04:00 36.9 79 16 132/75 (94) 90 Nasal Cannula 2.00 10/20/20 15:52 92 General Appearance: No Apparent Distress, WD/WN, Chronically ill Respiratory: Lungs Clear, Crackles (lll) Cardiovascular: Regular Rate, Rhythm Neurologic/Psychiatric: Alert, Oriented x3, No Motor/Sensory Deficits, Normal Mood/Affect Allergies: Coded Allergies: atorvastatin (Verified Allergy, Unknown, 10/18/20) Discharge Summary Date of Admission Oct 18, 2020 at 19:21 Date of Discharge Discharge Date: Oct 22, 2020 Admission Diagnosis Assessment: VDRF vent day # 3 intubated at [facility] during rapid response episode now extubated 10/19/20 at 1145am Left sided PNA s/p severe sepsis received 30cc/kg IVF without use of pressor therapy Massive GIB with no source of active bleeding on EGD x 2 and Colonoscopy suspect small bowel source rbc bleeding scan completed results pending CAD 2 stents placed 6 weeks ago previously on Effient and ASA last dose 10/12/20 life threatening bleed requires holding anti-platelet therapy Elevated troponin Plan: Vent- now extubated ICU care Transfuse RBC tagged nuclear scan results pending- results in revealed no active GIB PNA IVF Platelets infusion Discharge Diagnosis Assessment: s/p VDRF vent day # 3 intubated at [facility] during rapid response episode now extubated 10/19/20 at 1145am Left sided PNA s/p severe sepsis received 30cc/kg IVF without use of pressor therapy Massive GIB with no source of active bleeding on EGD x 2 and Colonoscopy suspect small bowel source rbc bleeding scan completed results pending CAD 2 stents placed 6 weeks ago previously on Effient and ASA last dose 10/12/20 life threatening bleed requires holding anti-platelet therapy Elevated troponin Plan: Vent- now extubated Move to 4th floor Transfused 9 units of blood RBC tagged nuclear scan results pending- results in revealed no active GIB PNA HLIVF Start Plavix to protect new coronary stents 10/21/20: Monitor hgb Monitor for melena Plavix to protect stents placed 7 weeks ago Abx Advance diet IS (1) Ventilator dependence (2) GI bleed (3) Anemia (4) Transfusion of platelets during current hospitalization (5) CAD (coronary artery disease) (6) Presence of stent in coronary artery (7) Pneumonia involving left lung (8) Severe sepsis (9) Lab test negative for COVID-19 virus Clinical Quality Measures DVT/VTE Risk/Contraindication: Risk Factor Score Per Nursin RFS Level Per Nursing on Admit: 4+=Very High Contraindications-Pharm: Other *list below* Other: RANI VALDEZ DO Oct 22, 2020 08:21
[2020-10-22 09:24] VITALS: BP 137/73
--- NOTE | 2020-10-22 09:42 | NUR ---
REPORT CALLED TO DES AT [facility].
== END 2020-10-22 09:24 | DRG 871 ==
LOC: ICU 19:21 → CSD 10-19 16:49 → 4TH 10-20 13:50
PROVIDERS: ADMIT Internal Medicine; ATTEND Internal Medicine
PROC: 5A1935Z Respiratory Ventilation, Less than 24 Consecutive Hours (ICD-10-PCS; principal; 2020-10-18)
DX: A41.9 Sepsis, unspecified organism (principal); J96.00 Acute respiratory failure, unspecified whether with hypoxia or hypercapnia; J18.9 Pneumonia, unspecified organism; I21.A1 Myocardial infarction type 2; K92.2 Gastrointestinal hemorrhage, unspecified; R65.20 Severe sepsis without septic shock; I25.10 Atherosclerotic heart disease of native coronary artery without angina pectoris; I10 Essential (primary) hypertension; E87.6 Hypokalemia; E78.00 Pure hypercholesterolemia, unspecified; Z20.828 Contact with and (suspected) exposure to other viral communicable diseases; Z95.5 Presence of coronary angioplasty implant and graft; Z79.02 Long term (current) use of antithrombotics/antiplatelets; Z79.82 Long term (current) use of aspirin
CPT/HCPCS: 36415; 71045; 78278; 80048; 80053; 81000; 82805; 82962; 83540; 83605; 83735; 84100; 84478; 84484; 85007; 85025; 85027; 86850; 86900; 86901; 86920; 87040; 87081; 87635; 93005; 93306; 94002; 94003; 94664; 94799

== ENCOUNTER 2022-09-20 13:29 | Outpatient (RCR) | payer MEDICARE, OTHER | END 2022-10-06 | disposition home or self-care (01) | LOC: ONC 13:29 | PROVIDERS: ATTEND Radiology Radiation Oncology | DX: Z51.0 Encounter for antineoplastic radiation therapy (principal); K57.30 Diverticulosis of large intestine without perforation or abscess without bleeding; K29.70 Gastritis, unspecified, without bleeding; I10 Essential (primary) hypertension | CPT/HCPCS: 77295; 77300; 77334; 77336; 77417; 99205 ==